=== PATIENT | male | born 1965 | race African-American/Black ===

== ENCOUNTER 2016-11-07 17:51 | Inpatient (IN) | payer OTHER ==
[~2016-11-07] VITALS: Ht 182.9 cm; Wt 73.3 kg
--- NOTE | ~2016-11-07 | EKG ---
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[facility] : 1965 Requested By: Varghese Trujillo Order Number: [id number] MD: Benny Heller Measurements Intervals [place] Rate: 108 P: 56 AR: 166 QRS: -43 QRSD: 96 T: 143 QT: 379 QTc: 508 Interpretive Statements Sinus tachycardia Left atrial enlargement LVH with secondary repolarization abnormality Prolonged QT interval Inferior infarct, old Compared to ECG 10/23/2016 21:25:11 No significant change was found Electronically Signed On 11-09-2016 8:38:30 ADVANCE AGENT by Benny Heller [email or web address] <ELECTRONICALLY SIGNED> By: Benny Heller MD, [facility] 11/09/16 0838 175 175 Benny Heller MD, [facility] /EPI
--- NOTE | ~2016-11-07 | HC ---
[facility] [place] [address] CONSULTATION Name: PATRICIA CARPIO Room #: 211-P [facility] IN M.R.#: [id number] Admission: 11/07/16 Attend Phys: Brian Woody Discharge: 11/10/16 Date of : 63 Report #: [id number] THIS REPORT FOR: //name// CC: MARY ANNE physician/PCP Brian Woody REASON FOR CONSULTATION: Stage 4 CKD. REASON FOR THE PRESENTATION: Chest pain. HISTORY OF PRESENT ILLNESS: The patient had been in the hospital 10/12/2016, 10/13/2016 and 10/23/2016 and was followed up, was seen by Dr. White, my partner in the group numerous times during his hospitalization. He has a very longstanding HIV, AIDS. He used to live in [place] and moved recently to [place]. On 10/13/2016, when he was evaluated by Dr. White, he reported that he has been taking numerous antiretroviral medications and developed significant cardiomyopathy with fluid retention. He was told that his kidney disease is related to HIV and that he had stage 4 kidney disease. No biopsy proven HIV related nephropathy. He presented initially to [facility] and refused to go back there. He was readmitted numerous times here with the same complaint. He reported that he has been having shortness of breath ever since the discharge. He also reported that he had been chest pain across the chest wall. This was related to his movement. No nausea or vomiting. He admitted to having a cardiac catheterizations back in [place] with nonrevealing findings; however, the reports are not available. He was also evaluated by Dr. Dimas for an ICD placement; however, this was postponed due to the patient's current immune suppressive status or immune compromised status. He is supposed to this. PAST MEDICAL HISTORY: 1. Cardiomyopathy. 2. Ejection fraction is 20%. 3. HIV. 4. Chronic obstructive pulmonary disease. 5. Chronic kidney disease, stage 4. 6. Hypertension. 7. Pancreatitis. 8. Status post laceration of the spleen with intestinal repair. 9. Genital herpes. 10. New skin lesions. 11. Chlamydia. 12. Syphilis. ALLERGIES: ADRIAN INHIBITOR . FAMILY HISTORY: No known chronic kidney disease in the family. [address] [address] CONSULTATION Name: PATRICIA CARPIO Room #: 211-P [facility] IN M.R.#: [id number] Admission: 11/07/16 Attend Phys: Brian Woody Discharge: 11/10/16 Date of : 63 Report #: [id number] SOCIAL HISTORY: No drug or alcohol abuse. REVIEW OF SYSTEMS: GENERAL: No fever or chills. CARDIOVASCULAR: Significant for chest pain and shortness of breath. PULMONARY: Significant for shortness of breath. No cough or hemoptysis. GASTROINTESTINAL: No nausea or vomiting. GENITOURINARY: No frequency, urgency. MEDICATIONS: 1. Bactrim. 2. Abacavir. 3. Lamivudine. 4. Hydralazine. 5. Carvedilol. 6. Losartan. 7. Aspirin. 8. Lasix. PHYSICAL EXAMINATION: GENERAL: He is alert, oriented, in no apparent distress. VITAL SIGNS: Blood pressure is 153/123. Temperature 36.6. HEAD AND NECK: No jugular venous distention, no bruit, no thyromegaly. CHEST: Decreased air entry bilaterally with very minimal bibasilar crackles. CARDIOVASCULAR: No rub detected. ABDOMEN: Soft, nontender with no hepatosplenomegaly. LOWER EXTREMITIES: Trace edema. ASSESSMENT, IMPRESSION, PLAN: 1. Terminal cardiomyopathy with ejection fractions of 20%. 2. Hypertension. 3. Chronic kidney disease stage 4. 4. Human immunodeficiency virus. 5. The patient seems to be stable from the renal perspective. His creatinine and other lab values were reviewed. He does have what seems to be advanced kidney disease, probably related to his human immunodeficiency virus. 6. We will place on Lasix. 7. Strict input and output. 8. Continue to address his blood pressure. 9. Continue to address his cardiomyopathy and currently, he is maintained on carvedilol, losartan, hydralazine, aspirin. 10. No emergent indication for dialysis at this point. 11. We will defer the management of his cardiac issues to the cardiac team. 12. Avoid nephrotoxins. 13. We will defer the management of his human immunodeficiency virus [address] [address] CONSULTATION Name: PATRICIA CARPIO Room #: 211-P [facility] IN M.R.#: [id number] Admission: 11/07/16 Attend Phys: Brian Woody Discharge: 11/10/16 Date of : 63 Report #: [id number] medications to the hospitalist and ID team. 14. Stable from our side. <ELECTRONICALLY SIGNED> By: Jarod Glover MD 11/19/16 0926 1040 1213 Jarod Glover MD /nt
--- NOTE | ~2016-11-07 | HC ---
[facility] [place] [address] CONSULTATION Name: PATRICIA CARPIO Room #: 211-P ADM IN M.R.#: [id number] Admission: 11/07/16 Attend Phys: Brian Woody Discharge: Date of : 63 Report #: [id number] THIS REPORT FOR: //name// CC: MARY ANNE physician/PCP Brian Woody DATE OF SERVICE: 11/08/2016 INDICATION: Chest pain and shortness of breath. HISTORY OF PRESENT ILLNESS: This is a 51-year-old gentleman presenting with exacerbation of chronic chest pains and increasing shortness of breath. He has a prior history of severe, nonischemic cardiomyopathy, HIV, COPD, chronic renal insufficiency, and hypertension. He has had several hospitalizations in the last month for congestive heart failure and chronic chest pain. He had troponin elevation in the indeterminate range. He reports having a prior catheterization in [place] within the past year, unremarkable. The patient was recently evaluated by Dr. Dimas as an outpatient for prophylactic ICD placement. Due to his immunocompromised state, this has been postponed and he is currently wearing a LifeVest. There is no history of fever or chills. He has chronic orthopnea. He describes the chest pain, across his chest. It seems to be exacerbated with movement of his arms and deep inspiration. PAST MEDICAL HISTORY: Severe nonischemic cardiomyopathy, recent echo shows EF in the 20% range. The patient reports having a cardiac catheterization within the past year in [place]. Currently wearing a LifeVest, ICD is postponed due to his immunocompromised state. HIV positive, COPD, chronic renal disease, hypertension, and pancreatitis. ALLERGIES: To ADRIAN INHIBITORS and AZITHROMYCIN. MEDICATIONS AT HOME: Include Bactrim, Epivir 150 mg daily, Tivicay 50 mg daily, DuoNebs, Combivent inhalers, hydralazine 25 mg 4 times a day, Coreg 25 mg b.i.d., losartan 100 mg daily, aspirin, Lasix 80 mg in the morning and 40 mg at night. SOCIAL HISTORY: Former tobacco smoker. FAMILY HISTORY: Negative for premature CAD. REVIEW OF SYSTEMS: A full 10-point review of systems performed. Only the pertinent positives and negatives are described in the HPI. PHYSICAL EXAMINATION: VITAL SIGNS: Blood pressure is 150/100. Heart rate is 100 beats per minute. GENERAL APPEARANCE: This is a well-developed, well-nourished male, in no [facility] [place] [address] [place] [address] CONSULTATION Name: PATRICIA CARPIO Room #: 211-P [facility] IN M.R.#: [id number] Admission: 11/07/16 Attend Phys: Brian Woody Discharge: Date of : 63 Report #: [id number] respiratory distress. HEAD AND EYES: Normocephalic. Sclerae are anicteric. ENT: Oral mucosa moist. NECK: Supple. LUNGS: Diminished breath sounds at the bases. CARDIAC: S1, S2 positive. ABDOMEN: Soft. EXTREMITIES: No major joint deformities. Positive for bilateral lower extremity edema, 1+. ECG reveals sinus tachycardia, nonspecific IVCD, LVH with repolarization abnormality. LABORATORY VALUES: Peak troponin is 0.1. White count is 3.6, hemoglobin is 10.9. Sodium is 141, potassium is 4.6, and creatinine is 3.0. ASSESSMENT: 1. Acute on chronic combined systolic and diastolic congestive heart failure. Continue with IV Lasix twice a day. 2. Chest pain, chronic. He has a troponin level in the indeterminate range. This has not changed from his previous hospitalizations. More likely related to a musculoskeletal/pleuritic etiology. Continue with medical therapy. 3. EP/LifeVest, has not had any recent discharges. We will have EP follow up during this admission. 4. Chronic obstructive pulmonary disease. 5. Human immunodeficiency virus. 6. Chronic renal insufficiency. Thank you for allowing me to participate in the care of your patient. <ELECTRONICALLY SIGNED> By: Seamus Reese MD 11/09/16 0838 0946 1012 Seamus Reese MD /nt
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
[2016-11-07 17:51] VITALS: BP 165/133
[~2016-11-07 17:51] MED LIST: ACYCLOVIR 400400 MG PO; AMBIEN 5 MG TABL5 M1 PO; AMLODIPINE BESYL5 M1 PO; ASPIR 8181 MG PO; BACTRIM DS TAB1 EACH PO; CARVEDILOL12.5 MG PO; CARVEDILOL25 MG PO; COLACE100 MG PO; COMBIVENT INH; COREG25 MG PO; COZAAR100 MG PO; DIPHENHIST50 MG PO; DUONEB 2.5-0.5 M3 ML INH; EPIVIR 150MG T150 M1 PO; HYDRALAZINE 2525 MG PO; IMDUR 30 MG TAB30 M1 PO; LASIX 20 MG TAB20 MG PO; LASIX 40 MG TAB40 M1 PO; MS CONTIN15 MG PO; NEBULIZER MISCELL; NORCO 10-325 T1 EACH PO; TIVICAY50 MG PO; TRIUMEQ TABLET1 EACH PO; ZIAGEN 300 MG300 MG PO
[2016-11-07 18:31] LABS: ABSOLUTE NEUTROPHILS 2.1 thou/uL (1.4-8.2); BASOPHILS 2.4 % (0.0-2.0); HEMATOCRIT 33.8 % (42.0-52.0); HEMOGLOBIN 10.9 gm/dL (14.0-18.0); LYMPHOCYTES 28.2 % (24.0-44.0); MCH 28.6 pg (26.0-34.0); MCHC 32.2 % (28.0-37.0); MCV 88.6 fL (80.0-100.0); MONOCYTES 7.4 % (1.0-8.0); PLATELET COUNT 167 thou/uL (150-400); RBC 3.81 mil/uL (4.50-6.00); RDW 19.4 % (10.5-14.5); WBC 3.6 thou/uL (4.0-11.0)
[2016-11-07 18:32] LABS: MANUAL DIFF NO
[2016-11-07 18:46] LABS: CALCIUM 8.2 mg/dL (8.5-10.1); POTASSIUM 4.4 mmol/L (3.5-5.1)
[2016-11-07 18:58] LABS: ALBUMIN 2.2 g/dL (3.4-5.0); CK-MB MASS 2.4 ng/mL (<0.5-3.6); MAGNESIUM 1.8 mg/dL (1.8-2.4); TOTAL BILIRUBIN 0.4 mg/dL (<0.1-1.0); TOTAL PROTEIN 6.8 g/dL (6.4-8.2); TROPONIN-I 0.1 ng/mL (<0.04-0.07)
[2016-11-07 19:29] LABS: URINE BILIRUBIN NEGATIVE (Negative); URINE BLOOD 1+ (Negative); URINE COLOR YELLOW; URINE GLUCOSE-RANDOM* NEGATIVE (Negative); URINE KETONES NEGATIVE (Negative); URINE LEUKOCYTES-REFLEX NEGATIVE (Negative); URINE PROTEIN (DIPSTICK) 3+ (Negative); URINE UROBILINOGEN 0.2 E.U./dl (0.2-1.0)
[2016-11-07 19:37] LABS: CASTS None Seen /LPF (None Seen); CRYSTALS None Seen /LPF (None Seen); SQUAMOUS None Seen /LPF (0-3); URINE RBC 0-2 Rare /HPF (0-2); URINE WBC-REFLEX 0-5 Rare /HPF (0-5)
[2016-11-07 20:15] VITALS: BP 159/123
[2016-11-07 20:45] VITALS: BP 168/133
[2016-11-07] MEDS ORDERED: LASIX 80 MG TAB80 MG PO (20:56)
[2016-11-07] MEDS ORDERED: LASIX 40 MG TAB40 M2 PO (20:56)
[2016-11-07] MEDS ORDERED: HYDRALAZINE 2525 MG PO (20:58)
[2016-11-07 23:25] VITALS: BP 173/136
[2016-11-07 23:52] LABS: APTT 26.3 Seconds (24.5-32.8); INR 1.1; PROTIME 11.7 Seconds (9.3-11.4)
[2016-11-08 03:12] LABS: CALCIUM 8.1 mg/dL (8.5-10.1); MAGNESIUM 1.8 mg/dL (1.8-2.4); POTASSIUM 4.6 mmol/L (3.5-5.1)
[2016-11-08 03:45] VITALS: BP 166/130
[2016-11-08 07:30] VITALS: BP 153/123
[2016-11-08 12:25] VITALS: BP 113/91
[2016-11-08 16:55] VITALS: BP 134/103
[2016-11-08 20:00] VITALS: BP 114/86
[2016-11-08 23:53] VITALS: BP 109/83
[2016-11-09 02:47] LABS: BASOPHILS 1.9 % (0.0-2.0); EOSINOPHILS 9.2 % (0.0-3.0); HEMATOCRIT 32.9 % (42.0-52.0); HEMOGLOBIN 10.6 gm/dL (14.0-18.0); LYMPHOCYTES 20.9 % (24.0-44.0); MCH 28.5 pg (26.0-34.0); MCHC 32.3 % (28.0-37.0); MCV 88.4 fL (80.0-100.0); MONOCYTES 10.1 % (1.0-8.0); PLATELET COUNT 151 thou/uL (150-400); POLYS 57.9 % (36.0-66.0); RBC 3.72 mil/uL (4.50-6.00); WBC 3.5 thou/uL (4.0-11.0)
[2016-11-09 03:00] LABS: MANUAL DIFF NO
[2016-11-09 03:04] LABS: CALCIUM 7.8 mg/dL (8.5-10.1); CREATININE 3.3 mg/dL (0.6-1.3); MAGNESIUM 1.7 mg/dL (1.8-2.4); PHOSPHORUS 4.6 mg/dL (2.5-4.9); POTASSIUM 4.7 mmol/L (3.5-5.1)
[2016-11-09 03:58] VITALS: BP 154/100
[2016-11-09 11:31] VITALS: BP 104/78
[2016-11-09 14:43] VITALS: BP 127/93
[2016-11-09 18:19] VITALS: BP 117/91
[2016-11-09 21:40] VITALS: BP 135/90
[2016-11-10 03:24] LABS: CALCIUM 8.6 mg/dL (8.5-10.1); CREATININE 3.3 mg/dL (0.6-1.3); MAGNESIUM 1.9 mg/dL (1.8-2.4); POTASSIUM 4.4 mmol/L (3.5-5.1)
[2016-11-10 04:08] VITALS: BP 144/99
[2016-11-10] MEDS ORDERED: NORCO 10-325 T1 EACH PO (08:33)
[2016-11-10] MEDS ORDERED: MS CONTIN15 MG PO (08:33)
[2016-11-10] MEDS ORDERED: LASIX 40 MG TAB40 M2 PO (08:33)
[2016-11-10 08:53] VITALS: BP 139/103
[2016-11-10 11:07] VITALS: BP 139/103
[2016-11-10 11:10] VITALS: BP 139/103
[2016-11-10] MEDS ORDERED: LASIX 80 MG TAB80 MG PO (12:26)
[2016-12-13] MEDS ORDERED: NORCO 10-325 T1 EACH PO (04:13)
[2016-12-13] MEDS ORDERED: COMBIVENT INH (05:30)
[2016-12-19] MEDS ORDERED: COREG25 MG PO (09:18)
[2016-12-19] MEDS ORDERED: COZAAR 50 MG TA50 M2 PO (09:29)
[2016-12-21] MEDS ORDERED: ZOFRAN ODT8 MG PO (18:18)
[2016-12-21] MEDS ORDERED: NORCO 5-325 TA1 EACH PO ×2 (18:18→20:48)
[2016-12-22] MEDS ORDERED: NORCO 5-325 TA1 EACH PO (13:42)
[2016-12-22] MEDS ORDERED: HOME MEDICATION PO (13:42)
== END 2016-11-10 12:55 | disposition home or self-care (01) | DRG 291 ==
LOC: ER 17:51 → 2N 19:48 → EROBS 19:48 → 2N 20:33
PROVIDERS: Emergency Medicine; Internal Medicine; Nurse Practitioner Acute Care
DX: I50.43 Acute on chronic combined systolic (congestive) and diastolic (congestive) heart failure (principal); E43 Unspecified severe protein-calorie malnutrition; B20 Human immunodeficiency virus [HIV] disease; I13.0 Hypertensive heart and chronic kidney disease with heart failure and stage 1 through stage 4 chronic kidney disease, or unspecified chronic kidney disease; N18.4 Chronic kidney disease, stage 4 (severe); K86.1 Other chronic pancreatitis; I42.9 Cardiomyopathy, unspecified; J96.10 Chronic respiratory failure, unspecified whether with hypoxia or hypercapnia; J44.9 Chronic obstructive pulmonary disease, unspecified; A74.9 Chlamydial infection, unspecified; G89.29 Other chronic pain; M54.9 Dorsalgia, unspecified; Z79.82 Long term (current) use of aspirin; Z79.899 Other long term (current) drug therapy; Z88.1 Allergy status to other antibiotic agents; Z88.8 Allergy status to other drugs, medicaments and biological substances; Z79.891 Long term (current) use of opiate analgesic; Z87.891 Personal history of nicotine dependence; Z86.19 Personal history of other infectious and parasitic diseases; Z82.49 Family history of ischemic heart disease and other diseases of the circulatory system; Z95.810 Presence of automatic (implantable) cardiac defibrillator; Z68.21 Body mass index [BMI] 21.0-21.9, adult
CPT/HCPCS: 10081

== ENCOUNTER 2016-11-18 10:22 | Emergency (ER) | payer OTHER ==
[~2016-11-18] VITALS: Ht 182.9 cm; Wt 77.1 kg
--- NOTE | ~2016-11-18 | EKG ---
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
[~2016-11-18 10:22] MED LIST changes: +LASIX 40 MG TAB40 M2 PO; +LASIX 80 MG TAB80 MG PO
[2016-11-18 10:35] LABS: ABSOLUTE NEUTROPHILS 2.5 thou/uL (1.4-8.2); BASOPHILS 1.8 % (0.0-2.0); HEMATOCRIT 34.9 % (42.0-52.0); LYMPHOCYTES 22.6 % (24.0-44.0); MCH 28.1 pg (26.0-34.0); MCHC 31.6 % (28.0-37.0); MONOCYTES 10.9 % (1.0-8.0); PLATELET COUNT 177 thou/uL (150-400); POLYS 60.7 % (36.0-66.0); RBC 3.92 mil/uL (4.50-6.00); RDW 19.3 % (10.5-14.5); WBC 4.1 thou/uL (4.0-11.0)
[2016-11-18 10:38] LABS: MANUAL DIFF NO
[2016-11-18 10:46] LABS: CALCIUM 8.7 mg/dL (8.5-10.1); CREATININE 2.7 mg/dL (0.6-1.3)
[2016-11-18 10:47] LABS: APTT 26.1 Seconds (24.5-32.8); INR 1.1
[2016-11-18 11:03] LABS: ALBUMIN 2.2 g/dL (3.4-5.0); CK-MB MASS 1.8 ng/mL (<0.5-3.6); TOTAL BILIRUBIN 0.3 mg/dL (<0.1-1.0); TROPONIN-I 0.06 ng/mL (<0.04-0.07)
[2016-11-18] MEDS ORDERED: NORCO 10-325 T1 EACH PO (14:14)
[2016-11-18] MEDS ORDERED: COMBIVENT RESPIM4 GM IH (14:14)
[2016-12-13] MEDS ORDERED: NORCO 10-325 T1 EACH PO (04:13)
[2016-12-13] MEDS ORDERED: COMBIVENT INH (05:30)
[2016-12-19] MEDS ORDERED: COREG25 MG PO (09:18)
[2016-12-19] MEDS ORDERED: COZAAR 50 MG TA50 M2 PO (09:29)
[2016-12-21] MEDS ORDERED: ZOFRAN ODT8 MG PO (18:18)
[2016-12-21] MEDS ORDERED: NORCO 5-325 TA1 EACH PO ×2 (18:18→20:48)
[2016-12-22] MEDS ORDERED: HOME MEDICATION PO (13:42)
[2016-12-22] MEDS ORDERED: NORCO 5-325 TA1 EACH PO (13:42)
== END 2016-11-18 14:40 | disposition home or self-care (01) ==
LOC: ER 10:22
PROVIDERS: Emergency Medicine
DX: I13.0 Hypertensive heart and chronic kidney disease with heart failure and stage 1 through stage 4 chronic kidney disease, or unspecified chronic kidney disease (principal); N18.4 Chronic kidney disease, stage 4 (severe); I50.9 Heart failure, unspecified; B20 Human immunodeficiency virus [HIV] disease; I42.9 Cardiomyopathy, unspecified; J44.9 Chronic obstructive pulmonary disease, unspecified; R10.9 Unspecified abdominal pain; G89.29 Other chronic pain; R60.9 Edema, unspecified; Z88.1 Allergy status to other antibiotic agents; Z88.8 Allergy status to other drugs, medicaments and biological substances; Z87.891 Personal history of nicotine dependence

== ENCOUNTER 2016-11-24 20:11 | Inpatient (IN) | payer OTHER ==
[~2016-11-24] VITALS: Ht 182.9 cm; Wt 76.1 kg
--- NOTE | ~2016-11-24 | EKG ---
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
--- NOTE | ~2016-11-24 | D ---
[facility] [place] [address] DISCHARGE SUMMARY Name: PATRICIA CARPIO Room #: 209-P [facility] IN M.R.#: [id number] Admission: 11/24/16 Attend Phys: Forest Stuart MD Discharge: 11/25/16 Date of : 63 Report #: [id number] THIS REPORT FOR: //name// CC: Luke Stuart DATE OF SERVICE: 11/25/2016 The patient left against medical advice. Please see H and P for further details. Briefly, this patient is a 51-year-old male. He was admitted because of continued chest pain, abdominal pain, back spasm and he had a known history of nonischemic cardiomyopathy and supposed to be wearing a LifeVest, EF 20-25% and grade 4 diastolic dysfunction, chronic back pain. He basically had mild elevated troponin, hypertension, chronic systolic and diastolic heart failure, chronic renal disease stage 3, history of HIV and chronic respiratory failure and COPD. He was aslo noncompliant with the treatment and see all the medicines ordered in the chart before even get to the floor, Patient left the hospital againsy medical advice beofre i even see him. patient was not seen by me. the patient. He basically refused to comply with treatment and he left against medical advice. Please see notes in the chart for further details. <ELECTRONICALLY SIGNED> By: Forest Stuart MD 01/17/17 1500 1428 1610 Forest Stuart MD /sina
[~2016-11-24 20:11] MED LIST changes: +COMBIVENT RESPIM4 GM IH
[2016-11-24 20:24] VITALS: BP 149/114
[2016-11-24 20:56] LABS: ABSOLUTE NEUTROPHILS 2.3 thou/uL (1.4-8.2); BASOPHILS 1.8 % (0.0-2.0); EOSINOPHILS 4.1 % (0.0-3.0); HEMATOCRIT 34.2 % (42.0-52.0); LYMPHOCYTES 26.4 % (24.0-44.0); MANUAL DIFF NO; MCH 28.3 pg (26.0-34.0); MCV 88.2 fL (80.0-100.0); MONOCYTES 11.1 % (1.0-8.0); PLATELET COUNT 170 thou/uL (150-400); POLYS 56.6 % (36.0-66.0); RBC 3.88 mil/uL (4.50-6.00); RDW 18.3 % (10.5-14.5); WBC 4.1 thou/uL (4.0-11.0)
[2016-11-24 21:02] LABS: ANION GAP 8 mmol/L (7-16); BUN 30 mg/dL (7-18); CALCIUM 8.4 mg/dL (8.5-10.1); CHLORIDE 104 mmol/L (98-107); CO2 28 mmol/L (21-32); CREATININE 2.8 mg/dL (0.6-1.3); GLUCOSE 112 mg/dL (70-99); POTASSIUM 4.2 mmol/L (3.5-5.1); SODIUM 140 mmol/L (136-145)
[2016-11-24 21:15] LABS: ALKALINE PHOSPHATASE 145 U/L (46-116); DIRECT BILIRUBIN < 0.1 mg/dL (<0.1-0.3); NT-PRO BRAIN NAT PEPTIDE 12151 pg/mL (<300); SGOT 15 U/L (15-37); SGPT 13 U/L (30-65); TOTAL BILIRUBIN 0.4 mg/dL (<0.1-1.0); TOTAL PROTEIN 6.4 g/dL (6.4-8.2); TROPONIN-I 0.09 ng/mL (<0.04-0.07)
[2016-11-24 22:11] LABS: CK-MB MASS 1.5 ng/mL (<0.5-3.6)
[2016-11-24 22:39] LABS: URINE BILIRUBIN NEGATIVE (Negative); URINE BLOOD 1+ (Negative); URINE COLOR YELLOW; URINE GLUCOSE-RANDOM* NEGATIVE (Negative); URINE KETONES NEGATIVE (Negative); URINE LEUKOCYTES-REFLEX NEGATIVE (Negative); URINE PROTEIN (DIPSTICK) 3+ (Negative); URINE UROBILINOGEN 0.2 E.U./dl (0.2-1.0)
[2016-11-24 22:53] LABS: CASTS None Seen /LPF (None Seen); CRYSTALS None Seen /LPF (None Seen); SQUAMOUS None Seen /LPF (0-3); URINE RBC 0-2 Rare /HPF (0-2); URINE WBC-REFLEX 0-5 Rare /HPF (0-5)
[2016-11-24 23:32] VITALS: BP 168/132
[2016-11-25 00:10] VITALS: BP 162/126
[2016-11-25 06:10] VITALS: BP 146/106
[2016-12-13] MEDS ORDERED: NORCO 10-325 T1 EACH PO (04:13)
[2016-12-13] MEDS ORDERED: COMBIVENT INH (05:30)
[2016-12-19] MEDS ORDERED: COREG25 MG PO (09:18)
[2016-12-19] MEDS ORDERED: COZAAR 50 MG TA50 M2 PO (09:29)
[2016-12-21] MEDS ORDERED: ZOFRAN ODT8 MG PO (18:18)
[2016-12-21] MEDS ORDERED: NORCO 5-325 TA1 EACH PO ×2 (18:18→20:48)
[2016-12-22] MEDS ORDERED: HOME MEDICATION PO (13:42)
[2016-12-22] MEDS ORDERED: NORCO 5-325 TA1 EACH PO (13:42)
== END 2016-11-25 07:45 | disposition left against medical advice (07) | DRG 291 ==
LOC: ER 20:11 → EROBS 23:00 → 2N 23:00
PROVIDERS: Emergency Medicine; Nurse Practitioner
DX: I13.0 Hypertensive heart and chronic kidney disease with heart failure and stage 1 through stage 4 chronic kidney disease, or unspecified chronic kidney disease (principal); B20 Human immunodeficiency virus [HIV] disease; I50.42 Chronic combined systolic (congestive) and diastolic (congestive) heart failure; J96.10 Chronic respiratory failure, unspecified whether with hypoxia or hypercapnia; N18.4 Chronic kidney disease, stage 4 (severe); I42.9 Cardiomyopathy, unspecified; R25.2 Cramp and spasm; G89.29 Other chronic pain; M54.9 Dorsalgia, unspecified; J44.9 Chronic obstructive pulmonary disease, unspecified; Z79.891 Long term (current) use of opiate analgesic; Z90.49 Acquired absence of other specified parts of digestive tract; Z88.1 Allergy status to other antibiotic agents; Z88.8 Allergy status to other drugs, medicaments and biological substances; Z79.899 Other long term (current) drug therapy; Z82.49 Family history of ischemic heart disease and other diseases of the circulatory system
CPT/HCPCS: 10081

== ENCOUNTER 2016-11-28 04:31 | Emergency (ER) | payer OTHER ==
[~2016-11-28] VITALS: Ht 182.9 cm; Wt 79.4 kg
--- NOTE | ~2016-11-28 | EKG ---
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1965 Requested By: Varghese Trujillo Order Number: [id number] MD: Dheeraj Dimas Measurements Intervals [place] Rate: 108 P: 49 CA: 190 QRS: -43 QRSD: 92 T: 100 QT: 375 QTc: 503 Interpretive Statements Sinus tachycardia Probable left atrial enlargement RSR' in V1 or V2, probably normal variant Inferior infarct, old Lateral leads are also involved Electronically Signed On 11-28-2016 16:07:33 ELECTRIC FREIGHT CAR OPERATOR by Dheeraj Dimas [email or web address] <ELECTRONICALLY SIGNED> By: Dheeraj Dimas MD 11/28/16 1607 0457 0457 Dheeraj Dimas MD /MEE
[2016-11-28 05:35] LABS: TROPONIN-I 0.11 ng/mL (<0.04-0.07)
[2016-11-28] MEDS ORDERED: ZOFRAN ODT8 MG PO (05:53)
[2016-11-28] MEDS ORDERED: NITROGLYCERIN0.4 MG SUBLING (05:53)
[2016-11-28] MEDS ORDERED: DUONEB 2.5-0.5 M3 ML INH (06:03)
[2016-11-28] MEDS ORDERED: COMBIVENT INH (06:03)
[2016-12-13] MEDS ORDERED: NORCO 10-325 T1 EACH PO (04:13)
[2016-12-13] MEDS ORDERED: COMBIVENT INH (05:30)
[2016-12-19] MEDS ORDERED: COREG25 MG PO (09:18)
[2016-12-19] MEDS ORDERED: COZAAR 50 MG TA50 M2 PO (09:29)
[2016-12-21] MEDS ORDERED: ZOFRAN ODT8 MG PO (18:18)
[2016-12-21] MEDS ORDERED: NORCO 5-325 TA1 EACH PO ×2 (18:18→20:48)
[2016-12-22] MEDS ORDERED: HOME MEDICATION PO (13:42)
[2016-12-22] MEDS ORDERED: NORCO 5-325 TA1 EACH PO (13:42)
== END 2016-11-28 06:48 | disposition home or self-care (01) ==
LOC: ER 04:31
PROVIDERS: Emergency Medicine
DX: R06.00 Dyspnea, unspecified (principal); I13.0 Hypertensive heart and chronic kidney disease with heart failure and stage 1 through stage 4 chronic kidney disease, or unspecified chronic kidney disease; N18.4 Chronic kidney disease, stage 4 (severe); I50.9 Heart failure, unspecified; J44.9 Chronic obstructive pulmonary disease, unspecified; Z21 Asymptomatic human immunodeficiency virus [HIV] infection status; G89.29 Other chronic pain; Z88.1 Allergy status to other antibiotic agents; Z88.8 Allergy status to other drugs, medicaments and biological substances; F17.210 Nicotine dependence, cigarettes, uncomplicated

== ENCOUNTER 2017-02-05 18:19 | Emergency (ER) | payer OTHER ==
[~2017-02-05] VITALS: Ht 182.9 cm; Wt 81.7 kg
--- NOTE | ~2017-02-05 | EKG ---
[place] [address] [facility] [place] [address] ELECTROCARDIOGRAM REPORT Name: PATRICIA CARPIO Room #: DEP GILMAR Bean#: [id number] Admission: 02/05/17 Attend Phys: Discharge: 02/05/17 Date of : 63 Report #: [id number] THIS REPORT FOR: //name// 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
[~2017-02-05 18:19] MED LIST changes: +COZAAR 50 MG TA50 M2 PO; +HOME MEDICATION PO; +NITROGLYCERIN0.4 MG SUBLING; +NORCO 5-325 TA1 EACH PO; +ZOFRAN ODT8 MG PO
[2017-02-05] MEDS ORDERED: NORCO 10-325 T1 EACH PO (18:55)
[2017-02-05] MEDS ORDERED: IMDUR 30 MG TAB30 M1 PO (18:57)
[2017-02-05] MEDS ORDERED: BUMETANIDE2 M1 PO (18:57)
[2017-02-05] MEDS ORDERED: NORVIR100 M1 PO (18:57)
[2017-02-05] MEDS ORDERED: PREZISTA800 MG PO (18:57)
[2017-02-05 18:59] LABS: ABSOLUTE NEUTROPHILS 2.6 thou/uL (1.4-8.2); BASOPHILS 1.2 % (0.0-2.0); EOSINOPHILS 1.6 % (0.0-3.0); HEMATOCRIT 30.5 % (42.0-52.0); HEMOGLOBIN 9.6 gm/dL (14.0-18.0); LYMPHOCYTES 28.2 % (24.0-44.0); MCHC 31.5 g/dL (28.0-37.0); MCV 85.6 fL (80.0-100.0); MONOCYTES 8.4 % (1.0-8.0); PLATELET COUNT 160 thou/uL (150-400); POLYS 60.6 % (36.0-66.0); RBC 3.56 mil/uL (4.50-6.00); RDW 18.3 % (10.5-14.5); WBC 4.3 thou/uL (4.0-11.0)
[2017-02-05 19:03] LABS: ANION GAP 8 mmol/L (7-16); BUN 24 mg/dL (7-18); CALCIUM 8.2 mg/dL (8.5-10.1); CHLORIDE 107 mmol/L (98-107); CO2 23 mmol/L (21-32); CREATININE 2.6 mg/dL (0.6-1.3); GLUCOSE 107 mg/dL (70-99); POTASSIUM 3.6 mmol/L (3.5-5.1); SODIUM 138 mmol/L (136-145)
[2017-02-05 19:06] LABS: MANUAL DIFF NO
[2017-02-05 19:14] LABS: ALKALINE PHOSPHATASE 97 U/L (46-116); DIRECT BILIRUBIN < 0.1 mg/dL (<0.1-0.3); NT-PRO BRAIN NAT PEPTIDE 13400 pg/mL (<300); SGOT 15 U/L (15-37); SGPT 9 U/L (30-65); TOTAL BILIRUBIN 0.2 mg/dL (<0.1-1.0); TOTAL PROTEIN 6.9 g/dL (6.4-8.2); TROPONIN-I 0.05 ng/mL (<0.04-0.07)
== END 2017-02-05 22:33 | disposition short-term general hospital (02) ==
LOC: ER 18:19
PROVIDERS: Emergency Medicine
DX: K85.90 Acute pancreatitis without necrosis or infection, unspecified (principal); I13.0 Hypertensive heart and chronic kidney disease with heart failure and stage 1 through stage 4 chronic kidney disease, or unspecified chronic kidney disease; N18.4 Chronic kidney disease, stage 4 (severe); I50.32 Chronic diastolic (congestive) heart failure; D64.9 Anemia, unspecified; J44.9 Chronic obstructive pulmonary disease, unspecified

== ENCOUNTER 2017-02-11 23:18 | Observation (INO) | payer OTHER ==
[~2017-02-11] VITALS: Ht 182.9 cm; Wt 80.6 kg
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
--- NOTE | ~2017-02-11 | HC ---
[facility] [address] [place] [address] CONSULTATION Name: PATRICIA CARPIO Room #: 201-P [facility]ICA Bean#: [id number] Admission: 02/12/17 Attend Phys: Brian Woody Discharge: 02/12/17 Date of : 63 Report #: [id number] THIS REPORT FOR: //name// CC: FAM unknown Brian Woody DATE OF SERVICE: 02/12/2017 REASON FOR CONSULTATION: Shortness of breath. HISTORY OF PRESENT ILLNESS: The patient is a 51-year-old gentleman who has been seen by Dr. Dimas and Dr. Reese. He has a history of a severe nonischemic cardiomyopathy, advanced chronic kidney disease, hypertension, HIV and COPD. Recently underwent prophylactic subcutaneous ICD placement by Dr. Wilson at . He now presents with several days of increasing shortness of breath with lower extremity edema and abdominal bleeding. He denies chest heaviness or pressure. There have been no symptoms to suggest ICD discharge. He denies fevers, chills or night sweats. ALLERGIES: Include ADRIAN INHIBITORS and AZITHROMYCIN. MEDICATIONS: Include Atrovent, Ziagen 300 mg twice daily, Atavir 150 mg daily, carvedilol 25 mg twice daily, losartan 50 mg daily, Imdur 30 mg daily, hydralazine 25 mg 4 times a day, and Bumex is 1-1/2 tablet twice daily. PAST MEDICAL HISTORY: His past history and medical records have been reviewed and include a history of chronic combined heart failure, HIV-AIDS, recent subcutaneous ICD placement, COPD and hypertension. SOCIAL HISTORY: He is a former smoker. FAMILY HISTORY: Unremarkable for premature coronary disease. REVIEW OF SYSTEMS: All systems negative except as that noted above. PHYSICAL EXAMINATION: GENERAL: A pleasant gentleman in no distress. VITAL SIGNS: Blood pressure is 130/90, heart rate is 70 and regular. He is afebrile, 6 feet tall and 177 pounds. HEENT: There are neither xanthelasma, subcutaneous xanthomata, oral mucosal or digital cyanosis or kyphoscoliosis present. CHEST: Reveals diminished breath sounds at both bases. CARDIOVASCULAR: Regular rate and rhythm with normal S1 and S2, S3 gallop is present. Jugular venous pressure is elevated. ABDOMEN: Soft and nontender. The abdomen reveals ascites. EXTREMITIES: With trace edema. Radial pulses are 2+. [facility] [address] [place] [address] CONSULTATION Name: PATRICIA CARPIO Room #: 201-P BERONICA Bean#: [id number] Admission: 02/12/17 Attend Phys: Brian Woody Discharge: 02/12/17 Date of : 63 Report #: [id number] NEUROLOGIC: He is alert with a nonfocal exam. LABORATORY DATA: Sodium is 137, potassium 4.1 and creatinine 3.1, which is around where his baseline is. White count 3.4, hemoglobin 9.3, hematocrit 28, platelet count 111. Chest x-ray demonstrates cardiomegaly and right basilar atelectasis. IMPRESSION: 1. Iftrv-hd-cjpcrjg systolic heart failure. 2. Severe cardiomyopathy. 3. Human immunodeficiency virus - acquired immunodeficiency syndrome. 4. Chronic obstructive pulmonary disease. 5. Hypertension. 6. History of paroxysmal ventricular tachycardia with recent subcutaneous implantable cardioverter defibrillator replacement. RECOMMENDATIONS: 1. IV Lasix. 2. Dietary salt restriction. 3. Despite an aggressive pharmacologic regimen, his recurrent and multiple hospitalizations over the past year for congestive heart failure places him at very high overall mortality. Thank you for asking me to participate in his care. <ELECTRONICALLY SIGNED> By: Benny Heller MD, FACC 02/13/17 1210 0959 1732 Benny Heller MD, FACC /nt
[~2017-02-11 23:18] MED LIST changes: +BUMETANIDE2 M1 PO; +NORVIR100 M1 PO; +PREZISTA800 MG PO
[2017-02-11 23:20] VITALS: BP 162/124
[2017-02-12 00:02] LABS: ABSOLUTE NEUTROPHILS 2.1 thou/uL (1.4-8.2); BASOPHILS 1.5 % (0.0-2.0); EOSINOPHILS 1.9 % (0.0-3.0); HEMATOCRIT 28.7 % (42.0-52.0); HEMOGLOBIN 9.3 gm/dL (14.0-18.0); LYMPHOCYTES 26.9 % (24.0-44.0); MANUAL DIFF NO; MCH 27.7 pg (26.0-34.0); MCHC 32.3 g/dL (28.0-37.0); MCV 85.8 fL (80.0-100.0); MONOCYTES 7.7 % (1.0-8.0); PLATELET COUNT 111 thou/uL (150-400); RBC 3.34 mil/uL (4.50-6.00); RDW 18.1 % (10.5-14.5); WBC 3.4 thou/uL (4.0-11.0)
[2017-02-12 00:38] LABS: GLUCOSE 122 mg/dL (74-106)
[2017-02-12 02:13] LABS: SGOT 20 U/L (15-37)
[2017-02-12 02:19] LABS: ALKALINE PHOSPHATASE 150 U/L (46-116); ANION GAP 12 mmol/L (7-16); BUN 35 mg/dL (7-18); CALCIUM 8.1 mg/dL (8.5-10.1); CHLORIDE 103 mmol/L (98-107); CO2 22 mmol/L (21-32); CREATININE 3.1 mg/dL (0.7-1.3); DIRECT BILIRUBIN < 0.1 mg/dL (<0.1-0.3); NT-PRO BRAIN NAT PEPTIDE 26697 pg/mL (<300); POTASSIUM 4.1 mmol/L (3.5-5.1); SGPT 12 U/L (30-65); SODIUM 137 mmol/L (136-145); TOTAL BILIRUBIN 0.3 mg/dL (<0.1-1.0); TOTAL PROTEIN 7.2 g/dL (6.4-8.2); TROPONIN-I 0.06 ng/mL (<0.04-0.07)
[2017-02-12 04:50] VITALS: BP 157/119
[2017-02-12 05:26] VITALS: BP 173/135
[2017-02-12 08:00] VITALS: BP 130/98
[2017-02-12 13:22] VITALS: BP 131/99
[2017-02-12 16:00] VITALS: BP 130/97
== END 2017-02-12 21:47 | disposition left against medical advice (07) ==
LOC: ER 23:18 → EROBS 02-12 04:02 → ER 02-12 04:02 → 2N 02-12 04:51
PROVIDERS: Emergency Medicine
DX: I82.409 Acute embolism and thrombosis of unspecified deep veins of unspecified lower extremity (principal); I50.43 Acute on chronic combined systolic (congestive) and diastolic (congestive) heart failure; I13.0 Hypertensive heart and chronic kidney disease with heart failure and stage 1 through stage 4 chronic kidney disease, or unspecified chronic kidney disease; N18.4 Chronic kidney disease, stage 4 (severe); J96.10 Chronic respiratory failure, unspecified whether with hypoxia or hypercapnia; J44.9 Chronic obstructive pulmonary disease, unspecified; K85.90 Acute pancreatitis without necrosis or infection, unspecified; B20 Human immunodeficiency virus [HIV] disease; Z87.891 Personal history of nicotine dependence; F10.21 Alcohol dependence, in remission

== ENCOUNTER 2017-04-06 19:46 | Inpatient (IN) | payer OTHER ==
[~2017-04-06] VITALS: Ht 182.9 cm; Wt 77.1 kg
--- NOTE | ~2017-04-06 | 2DMMODE ---
[facility] [address] [place] [address] 2 D/M-MODE ECHOCARDIOGRAM Name: PATRICIA CARPIO Room #: 206-P ADM IN M.R.#: [id number] Admission: 04/06/17 Attend Phys: Billy Rendon Discharge: Date of : 63 Date of Service: 04/08/17 1023 Report #: [id number] THIS REPORT FOR: //name// APPROVED REPORT Study performed: 04/07/2017 13:42:17 EXAM: Comprehensive 2D, Doppler, and color-flow Echocardiogram Patient Location: Bedside Room #: 206 Other Information Study Quality: Good Indications Congestive Heart Failure COPD Hypertension/HDD 2D Dimensions RVDd: 49.82 mm LVEF(%): 17.03 (>50%) IVSd: 10.62 (7-11mm) LVOT Diam: 21.98 (18-24mm) LVDd: 60.26 mm PWd: 11.91 (7-11mm) Ascending Ao: 31.52 (22-36mm) LVDs: 55.55 (25-40mm) Aortic Root: 32.81 mm IVC: 24.00 mm Singh's LVEF: 17.03 % Volumes Left Atrial Volume (Systole) Single Plane 4CH: 89.65 mL Single Plane 2CH: 119.69 mL LA ESV Index: 57.00 mL/m2 Aortic Valve AoV Peak Micheal.: 0.82 m/s AO Peak Gr.: 2.72 mmHg LVOT Max P.55 mmHg LVOT Max V: 0.37 m/s LIGIA Vmax: 1.70 cm2 Mitral Valve E/A Ratio: 2.3 MV Decel. Time: 109.47 ms MV E Max Micheal.: 0.84 m/s MV A Micheal.: 0.36 m/s [facility] [place] [place] [address] 2 D/M-MODE ECHOCARDIOGRAM Name: SHIRINPATRICIA Room #: 206-P ADM IN M.R.#: [id number] Admission: 04/06/17 Attend Phys: Billy Rendon Discharge: Date of : 63 Date of Service: 04/08/17 1023 Report #: [id number] MV PHT: 31.75 ms IVRT: 89.97 ms Pulmonary Valve PV Peak Micheal.: 0.70 m/s PV Peak Gr.: 1.98 mmHg Pulmonary Vein P Vein S: 0.40 m/s P Vein A: 0.09 m/s P Vein D: 0.22 m/s P Vein S/D Ratio: 1.82 Tricuspid Valve TR Peak Micheal.: 3.59 m/s RAP Estimate: 15.00 mmHg TR Peak Gr.: 51.61 mmHg Left Ventricle The left ventricle is normal size. There is normal left ventricular wall thickness. Left ventricular systolic function is severely decreased. LVEF is 20%. Grade IV - fixed restrictive diastolic dysfunction. Right Ventricle Right ventricle is dilated. Right ventricular systolic function is reduced. Atria Left atrium is dilated. Right atrium is dilated. Aortic Valve The aortic valve is normal in structure. Trace aortic regurgitation. There is no aortic valvular stenosis. Mitral Valve The mitral valve is normal in structure. Moderate mitral regurgitation. No evidence of mitral valve stenosis. Tricuspid Valve The tricuspid valve is normal in structure. Moderate tricuspid regurgitation. Pulmonic Valve The pulmonary valve is normal in structure. Mild pulmonic regurgitation. Great Vessels The aortic root is normal in size. The ascending aorta is normal in [facility] [address] [place] [address] 2 D/M-MODE ECHOCARDIOGRAM Name: PATRICIA CARPIO Room #: 206-P ADM IN M.R.#: [id number] Admission: 04/06/17 Attend Phys: Billy Rendon Discharge: Date of : 63 Date of Service: 04/08/17 1023 Report #: [id number] size. IVC is dilated and collapses <50% with inspiration. Pericardium There is no pericardial effusion. There is no pleural effusion. <Conclusion> The left ventricle is normal size. Left ventricular systolic function is severely decreased. LVEF is 20%. Right ventricle is dilated. Left atrium is dilated. Right atrium is dilated. The aortic valve is normal in structure. Trace aortic regurgitation. The mitral valve is normal in structure. Moderate mitral regurgitation. The tricuspid valve is normal in structure. Moderate tricuspid regurgitation. The pulmonary valve is normal in structure. Mild pulmonic regurgitation. IVC is dilated and collapses <50% with inspiration. <ELECTRONICALLY SIGNED> By: Jakub Little MD 04/08/17 1023 1023 1023 Jakub Little MD /INF
--- NOTE | ~2017-04-06 | EKG ---
[address] [place] [address] ELECTROCARDIOGRAM REPORT Name: PATRICIA CARPIO Room #: 206-P ADM IN M.R.#: [id number] Admission: 04/06/17 Attend Phys: Joe Avila MD Discharge: Date of : 63 Report #: [id number] THIS REPORT FOR: //name// [facility] ED Test Date: 2017-04-06 Test Time: 20:13:11 Pat Name: PATRICIA CARPIO Department: Room: 206 Gender: M Clean Room Technician: [id number] : 1965 Requested By: Lisa Waddell Order Number: [id number] MD: Benny Heller Measurements Intervals [place] Rate: 108 P: 50 ME: 181 QRS: -40 QRSD: 92 T: 120 QT: 359 QTc: 481 Interpretive Statements Sinus tachycardia Left atrial enlargement ST and T wave abnormality, consider lateral ischemia Inferior infarct, old Compared to ECG 02/05/2017 18:33:23 no significant change was found Electronically Signed On 04-07-2017 7:25:33 CDT by Benny Heller [email or web address] <ELECTRONICALLY SIGNED> By: Benny Heller MD, [facility] 04/07/17 0725 12 12 Benny Heller MD, [facility] /EPI
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
[2017-04-06 19:48] VITALS: BP 159/118
[2017-04-06 21:14] LABS: ANION GAP 9 mmol/L (7-16); BUN 23 mg/dL (7-18); CALCIUM 8.5 mg/dL (8.5-10.1); CHLORIDE 104 mmol/L (98-107); CO2 24 mmol/L (21-32); CREATININE 2.3 mg/dL (0.7-1.3); GLUCOSE 106 mg/dL (74-106); POTASSIUM 4.3 mmol/L (3.5-5.1); SODIUM 137 mmol/L (136-145)
[2017-04-06 21:19] LABS: NT-PRO BRAIN NAT PEPTIDE 9790 pg/mL (<300); TROPONIN-I < 0.04 ng/mL (<0.04-0.07)
[2017-04-06 21:34] LABS: ALBUMIN 2.4 g/dL (3.4-5.0); ALKALINE PHOSPHATASE 124 U/L (46-116); DIRECT BILIRUBIN < 0.1 mg/dL (<0.1-0.3); SGOT 19 U/L (15-37); SGPT 10 U/L (30-65); TOTAL BILIRUBIN 0.3 mg/dL (<0.1-1.0); TOTAL PROTEIN 7.4 g/dL (6.4-8.2)
[2017-04-06 21:44] LABS: ABSOLUTE NEUTROPHILS 1.9 thou/uL (1.4-8.2); BASOPHILS 1.4 % (0.0-2.0); EOSINOPHILS 3.4 % (0.0-3.0); HEMATOCRIT 28.4 % (42.0-52.0); LYMPHOCYTES 39.9 % (24.0-44.0); MANUAL DIFF NO; MCHC 31.7 g/dL (28.0-37.0); MCV 85.1 fL (80.0-100.0); MONOCYTES 7.9 % (1.0-8.0); PLATELET COUNT 163 thou/uL (150-400); POLYS 47.4 % (36.0-66.0); RBC 3.34 mil/uL (4.50-6.00); RDW 20.5 % (10.5-14.5); WBC 3.9 thou/uL (4.0-11.0)
[2017-04-06 22:14] VITALS: BP 153/118
[2017-04-06 22:33] VITALS: BP 164/124
[2017-04-06] MEDS ORDERED: COREG6.25 MG PO (22:40)
[2017-04-07 03:41] VITALS: BP 153/118
[2017-04-07 08:37] VITALS: BP 156/121
[2017-04-07 11:39] VITALS: BP 131/98
[2017-04-07 20:10] VITALS: BP 135/98
[2017-04-08 06:10] VITALS: BP 144/114
[2017-04-08 06:24] LABS: ABSOLUTE NEUTROPHILS 1.9 thou/uL (1.4-8.2); BASOPHILS 1.4 % (0.0-2.0); EOSINOPHILS 8.5 % (0.0-3.0); HEMATOCRIT 28.9 % (42.0-52.0); LYMPHOCYTES 33.2 % (24.0-44.0); MCH 27.1 pg (26.0-34.0); MCHC 31.3 g/dL (28.0-37.0); MCV 86.7 fL (80.0-100.0); MONOCYTES 9.1 % (1.0-8.0); PLATELET COUNT 183 thou/uL (150-400); POLYS 47.8 % (36.0-66.0); RBC 3.33 mil/uL (4.50-6.00); RDW 20.5 % (10.5-14.5); WBC 3.9 thou/uL (4.0-11.0)
[2017-04-08 06:25] LABS: MANUAL DIFF NO
[2017-04-08 06:33] LABS: ALBUMIN 2.6 g/dL (3.4-5.0); CALCIUM 8.8 mg/dL (8.5-10.1); MAGNESIUM 1.9 mg/dL (1.8-2.4); POTASSIUM 4.7 mmol/L (3.5-5.1); TOTAL BILIRUBIN 0.3 mg/dL (<0.1-1.0); TOTAL PROTEIN 7.9 g/dL (6.4-8.2)
[2017-04-08] MEDS ORDERED: DUONEB 2.5-0.5 M3 ML INH (08:57)
[2017-04-08] MEDS ORDERED: NORCO 10-325 T1 EACH PO (08:57)
[2017-04-08] MEDS ORDERED: CARVEDILOL12.5 MG PO (10:47)
[2017-04-08 11:04] VITALS: BP 144/114
== END 2017-04-08 11:36 | disposition home or self-care (01) | DRG 438 ==
LOC: ER 19:46 → EROBS 22:10 → 2N 22:10
PROVIDERS: Emergency Medicine; Internal Medicine
DX: K85.90 Acute pancreatitis without necrosis or infection, unspecified (principal); I50.43 Acute on chronic combined systolic (congestive) and diastolic (congestive) heart failure; B20 Human immunodeficiency virus [HIV] disease; I13.0 Hypertensive heart and chronic kidney disease with heart failure and stage 1 through stage 4 chronic kidney disease, or unspecified chronic kidney disease; N18.4 Chronic kidney disease, stage 4 (severe); N17.9 Acute kidney failure, unspecified; I42.9 Cardiomyopathy, unspecified; K86.1 Other chronic pancreatitis; R07.9 Chest pain, unspecified; J43.9 Emphysema, unspecified; G89.29 Other chronic pain; M54.9 Dorsalgia, unspecified; Z88.1 Allergy status to other antibiotic agents; Z86.74 Personal history of sudden cardiac arrest; Z82.49 Family history of ischemic heart disease and other diseases of the circulatory system; Z95.810 Presence of automatic (implantable) cardiac defibrillator; Z88.8 Allergy status to other drugs, medicaments and biological substances; Z79.899 Other long term (current) drug therapy; Z79.82 Long term (current) use of aspirin; Z87.891 Personal history of nicotine dependence; Z99.81 Dependence on supplemental oxygen
CPT/HCPCS: 10081

== ENCOUNTER 2017-04-12 18:35 | Inpatient (IN) | payer OTHER ==
[~2017-04-12] VITALS: Ht 182.9 cm; Wt 76.8 kg
--- NOTE | ~2017-04-12 | P ---
[facility] [place] [address] PROCEDURE REPORT Name: PATRICIA CARPIO Room #: 448-P [facility] IN M.R.#: [id number] Admission: 04/12/17 Attend Phys: Ford Guaman MD Discharge: Date of : 63 Report #: [id number] THIS REPORT FOR: //name// CC: FAM unknown Ford Guaman MD ESOPHAGOGASTRODUODENOSCOPY WITH BIOPSIES DATE OF PROCEDURE: 04/14/2017. PATIENT OF: Ford Guaman M.D. INDICATION FOR PROCEDURE: Nausea and epigastric tenderness of undetermined etiology. The patient has also had elevated lipase and pancreatitis episodes, it is thought that these may be related to some of his medications that he takes for the human immunodeficiency virus infection. However, other entities should be excluded, therefore esophagogastroduodenoscopy is being performed to evaluate for possible peptic ulcer disease and H. pylori infection. Informed consent for this procedure was obtained prior to the administration of any medication. The risks of the procedure which include bleeding, perforation, infection, complications of sedation and the possibility I could miss something have been explained to the patient and he has indicated his consent by signing. DESCRIPTION OF PROCEDURE: Propofol was slowly titrated before and during this procedure for patient comfort by the anesthesia service. The CanDiagn upper videoscope was introduced through the upper esophageal sphincter and advanced under direct visualization to the descending duodenum. Findings are noted on withdrawal of the scope. The duodenal mucosa appears normal throughout its entirety. Pylorus, normal mucosa. Antrum, the mucosa lining of the antrum of the stomach is very pale in appearance compared to the rest of the stomach, there is a transition zone between the antrum and body of the stomach that is erythematous and biopsies were obtained x 2 from this area for histopathology, consider random gastric biopsies. Body, erythematous mucosa with edema of the folds, the folds appear enlarged, biopsies are obtained times 2 from the body of the stomach and placed in the same jar as random biopsies of the stomach. Cardia and fundus, normal mucosa. Retroflex view did not reveal any hiatal hernia. Good hemostasis was noted after all biopsies. The scope was withdrawn into the esophagus. The Z-line is appropriately located at the top of the gastric folds and appears normal. The esophageal mucosa appears normal throughout its entirety. The scope was withdrawn. The patient went to the recovery area in stable condition. He tolerated the procedure well. IMPRESSION: 1. Diffuse edema and some erythema of the stomach as described above. Biopsies pending. [facility] [address] [place] [address] PROCEDURE REPORT Name: PATRICIA CARPIO Room #: 448-P ADM IN M.R.#: [id number] Admission: 04/12/17 Attend Phys: Ford Guaman MD Discharge: Date of : 63 Report #: [id number] 2. Normal esophagus and duodenum. RECOMMENDATIONS: Are to await the biopsy results and we will start the patient on a clear liquid diet and advance as tolerated today. Thank you very much once again for allowing me to participate in his care. <ELECTRONICALLY SIGNED> By: Em Spear DO 04/14/17 1239 1151 1228 Em Spear DO /nt
--- NOTE | ~2017-04-12 | EKG ---
[address] [place] [address] ELECTROCARDIOGRAM REPORT Name: PATRICIA CARPIO Room #: 448-P ADM IN M.R.#: [id number] Admission: 04/12/17 Attend Phys: Ford Guaman MD Discharge: Date of : 63 Report #: [id number] THIS REPORT FOR: //name// [facility] ED Test Date: 2017-04-12 Test Time: 18:42:53 Pat Name: PATRICIA CARPIO Department: Room: [facility] Gender: M Human Resources Professional: [id number] : 1965 Requested By: Mariola Yarbrough Order Number: [id number] MD: Benny Heller Measurements Intervals [place] Rate: 93 P: 56 MD: 206 QRS: -40 QRSD: 95 T: 133 QT: 386 QTc: 481 Interpretive Statements Sinus rhythm Prolonged MD interval Left atrial enlargement RSR' in V1 or V2, probably normal variant Inferior infarct, old T wave abnormality, consider lateral ischemia Compared to ECG 04/06/2017 20:13:11 no significant change was found Electronically Signed On 04-14-2017 8:01:30 CDT by Benny Heller [email or web address] <ELECTRONICALLY SIGNED> By: Benny Heller MD, [facility] 04/14/17 0801 184 184 Benny Heller MD, [facility] /EPI
--- NOTE | ~2017-04-12 | S ---
[facility] [address] SURGICAL PATH RPT PROCEDURE Name: JOEY RICHARDS Room #: 448-P DIS IN M.R.#: [id number] Admission: 04/12/17 Date of : 63 Discharge: 04/16/17 Report #: [id number] Path Case #: [id number] PATHOLOGY REPORT COLLECTION DATE: 04/14/2017 RECEIVED DATE: 04/15/2017 SUBMITTING PHYS: Dr. Em Spear OTHER PHYS: Dr. Ford Guaman SPECIMEN(S) RECEIVED: A.Bx of gastritis * * * * * * * * * * * * FINAL DIAGNOSIS: "BX of gastritis", biopsy: - Gastric mucosa with reactive changes and acute and chronic inflammation including patchy active gastritis. - Negative H. pylori immunohistochemical stain (block A1); control reacted appropriately. (CLW:cammy; d/t: 04/18/2017) PATHOLOGIST: Risa Awad M.D. REPORT ELECTRONICALLY SIGNED BY: Risa Awad M.D. DATE/TIME: 04/18/2017 23:50 * * * * * * * * * * * * GROSS PATHOLOGY: Received in formalin labeled "Joey Richards, biopsy of gastritis," are three segments of joaquin soft tissue measuring 0.7 x 0.5 x 0.1 cm in aggregate dimensions and ranging from 0.1 to 0.5 cm in maximum dimension. The specimen is submitted entirely in cassette A1. (CAA; 04/16/2017) CLINICAL HISTORY: N/V INITIAL CPT CODE(S): A; 70631, 56453 Professional services performed by [facility] at [facility] [address], [place] [address] Technical services performed by [facility] at [address] [place] [id number]. [facility] [address] [place] [address] SURGICAL PATH RPT PROCEDURE Name: JOEY RICHARDS Room #: 448-P DIS IN M.R.#: [id number] Admission: 04/12/17 Date of : 63 Discharge: 04/16/17 Report #: [id number] Path Case #: [id number] [facility] [address] [address] PHONE: [phone] DIRECTOR: Peewee Masters M.D. * * * END OF REPORT * * *
[~2017-04-12 18:35] MED LIST changes: +COREG6.25 MG PO
[2017-04-12 18:37] VITALS: BP 161/116
[2017-04-12 19:31] LABS: ABSOLUTE NEUTROPHILS 1.9 thou/uL (1.4-8.2); EOSINOPHILS 6.7 % (0.0-3.0); HEMATOCRIT 28.7 % (42.0-52.0); HEMOGLOBIN 9.1 gm/dL (14.0-18.0); LYMPHOCYTES 32.9 % (24.0-44.0); MANUAL DIFF NO; MCH 27.8 pg (26.0-34.0); MCHC 31.7 g/dL (28.0-37.0); MCV 87.9 fL (80.0-100.0); MONOCYTES 7.9 % (1.0-8.0); PLATELET COUNT 176 thou/uL (150-400); POLYS 50.5 % (36.0-66.0); RBC 3.27 mil/uL (4.50-6.00); RDW 20.9 % (10.5-14.5); WBC 3.8 thou/uL (4.0-11.0)
[2017-04-12 19:41] LABS: ANION GAP 10 mmol/L (7-16); BUN 27 mg/dL (7-18); CALCIUM 8.7 mg/dL (8.5-10.1); CHLORIDE 106 mmol/L (98-107); CO2 23 mmol/L (21-32); CREATININE 3.2 mg/dL (0.7-1.3); GLUCOSE 120 mg/dL (74-106); POTASSIUM 4.3 mmol/L (3.5-5.1); SODIUM 139 mmol/L (136-145)
[2017-04-12 19:49] LABS: ALBUMIN 2.6 g/dL (3.4-5.0); ALKALINE PHOSPHATASE 112 U/L (46-116); SGOT 15 U/L (15-37); SGPT 9 U/L (30-65); TOTAL BILIRUBIN 0.3 mg/dL (<0.1-1.0); TOTAL PROTEIN 7.6 g/dL (6.4-8.2); TROPONIN-I < 0.04 ng/mL (<0.04-0.07)
[2017-04-12 20:35] LABS: NT-PRO BRAIN NAT PEPTIDE 9344 pg/mL (<300)
[2017-04-12 22:54] VITALS: BP 160/124
[2017-04-13] MEDS ORDERED: IBUPROFEN 400400 M2 PO (01:53)
[2017-04-13 03:49] LABS: ANION GAP 9 mmol/L (7-16); BUN 28 mg/dL (7-18); CALCIUM 8.8 mg/dL (8.5-10.1); CHLORIDE 104 mmol/L (98-107); CO2 22 mmol/L (21-32); CREATININE 3.1 mg/dL (0.7-1.3); POTASSIUM 4.8 mmol/L (3.5-5.1); SODIUM 135 mmol/L (136-145); TROPONIN-I < 0.04 ng/mL (<0.04-0.07)
[2017-04-13 03:54] VITALS: BP 167/125
[2017-04-13 04:13] LABS: GLUCOSE 100 mg/dL (74-106)
[2017-04-13 06:51] LABS: HEMATOCRIT 30.5 % (42.0-52.0); HEMOGLOBIN 9.5 gm/dL (14.0-18.0); MCH 27.4 pg (26.0-34.0); MCHC 31.3 g/dL (28.0-37.0); MCV 87.7 fL (80.0-100.0); RBC 3.48 mil/uL (4.50-6.00); RDW 21.1 % (10.5-14.5); WBC 4.6 thou/uL (4.0-11.0)
[2017-04-13 08:35] VITALS: BP 151/117
[2017-04-13 16:56] VITALS: BP 153/114
[2017-04-13 20:30] VITALS: BP 150/118
[2017-04-14 06:20] VITALS: BP 149/114
[2017-04-14 08:00] VITALS: BP 145/107
[2017-04-14 12:45] VITALS: BP 131/106
[2017-04-14 13:39] VITALS: BP 131/106
[2017-04-14 13:44] VITALS: BP 131/106
[2017-04-14 20:34] VITALS: BP 134/110
[2017-04-15 06:37] VITALS: BP 142/115
[2017-04-15 11:10] VITALS: BP 143/108
[2017-04-15 14:22] LABS: ABSOLUTE NEUTROPHILS 1.8 thou/uL (1.4-8.2); BASOPHILS 0.9 % (0.0-2.0); EOSINOPHILS 6.5 % (0.0-3.0); HEMATOCRIT 28.7 % (42.0-52.0); HEMOGLOBIN 9.1 gm/dL (14.0-18.0); LYMPHOCYTES 32.4 % (24.0-44.0); MANUAL DIFF NO; MCH 27.4 pg (26.0-34.0); MCHC 31.7 g/dL (28.0-37.0); MCV 86.2 fL (80.0-100.0); MONOCYTES 8.3 % (1.0-8.0); PLATELET COUNT 173 thou/uL (150-400); POLYS 51.9 % (36.0-66.0); RBC 3.33 mil/uL (4.50-6.00); RDW 20.7 % (10.5-14.5); WBC 3.5 thou/uL (4.0-11.0)
[2017-04-15 14:34] LABS: ALBUMIN 2.5 g/dL (3.4-5.0); CALCIUM 8.8 mg/dL (8.5-10.1); CREATININE 3.2 mg/dL (0.7-1.3); POTASSIUM 4.2 mmol/L (3.5-5.1); TOTAL BILIRUBIN 0.4 mg/dL (<0.1-1.0); TOTAL PROTEIN 7.3 g/dL (6.4-8.2)
[2017-04-15 16:00] VITALS: BP 135/98
[2017-04-15 22:00] VITALS: BP 147/107
[2017-04-16] VITALS: BP 147/107
[2017-04-16 06:30] VITALS: BP 146/105
[2017-04-16 08:00] VITALS: BP 140/107
[2017-04-16] MEDS ORDERED: NORCO 10-325 T1 EACH PO (10:23)
[2017-04-16] MEDS ORDERED: MS CONTIN15 MG PO (10:23)
[2017-04-16] MEDS ORDERED: PANCREAZE DR 11 EAC2 PO (10:24)
[2017-04-16] MEDS ORDERED: COMBIVENT INH (10:24)
[2017-04-16] MEDS ORDERED: NEXIUM40 MG PO (10:24)
== END 2017-04-16 11:10 | disposition home or self-care (01) | DRG 438 ==
LOC: ER 18:35 → 4S 21:05 → EROBS 21:05 → 4S 22:45
PROVIDERS: Emergency Medicine; Hospitalist; Physician Assistant
PROC: 0DB68ZX Excision of Stomach, Via Natural or Artificial Opening Endoscopic, Diagnostic (ICD-10-PCS; principal; 2017-04-14)
DX: K86.1 Other chronic pancreatitis (principal); I50.43 Acute on chronic combined systolic (congestive) and diastolic (congestive) heart failure; B20 Human immunodeficiency virus [HIV] disease; N17.9 Acute kidney failure, unspecified; I13.0 Hypertensive heart and chronic kidney disease with heart failure and stage 1 through stage 4 chronic kidney disease, or unspecified chronic kidney disease; I42.8 Other cardiomyopathies; N18.4 Chronic kidney disease, stage 4 (severe); K29.70 Gastritis, unspecified, without bleeding; F43.10 Post-traumatic stress disorder, unspecified; Z95.810 Presence of automatic (implantable) cardiac defibrillator; Z99.81 Dependence on supplemental oxygen; Z87.891 Personal history of nicotine dependence; Z88.1 Allergy status to other antibiotic agents; Z88.8 Allergy status to other drugs, medicaments and biological substances; J43.9 Emphysema, unspecified; Z79.82 Long term (current) use of aspirin; Z79.899 Other long term (current) drug therapy
CPT/HCPCS: 10100; 62110; 62900; 70005

== ENCOUNTER 2017-04-20 20:40 | Emergency (ER) | payer OTHER ==
[~2017-04-20] VITALS: Ht 182.9 cm; Wt 77.1 kg
--- NOTE | ~2017-04-20 | EKG ---
[place] [address] [facility] [place] [address] ELECTROCARDIOGRAM REPORT Name: PATRICIA CARPIO [id number] Admission: 04/20/17 Attend Phys: Discharge: 04/21/17 Date of : 63 Report #: [id number] THIS REPORT FOR: //name// [facility] ED Test Date: 2017-04-20 Test Time: 20:49:32 Pat Name: PATRICIA CARPIO Department: Room: Gender: M Death Claim Clerk: MZOOK : 1965 Requested By: Antonella Hummel Order Number: [id number] MD: Benny Heller Measurements Intervals [place] Rate: 101 P: 51 [place]: 202 QRS: -34 QRSD: 94 T: 116 QT: 353 QTc: 458 Interpretive Statements Sinus tachycardia Left axis deviation RSR' in V1 or V2, probably normal variant Abnrm T, consider ischemia, anterolateral lds Compared to ECG 04/12/2017 18:42:53 no significant change was found Electronically Signed On 04-22-2017 8:04:53 CDT by Benny Heller [email or web address] <ELECTRONICALLY SIGNED> By: Benny Heller MD, [facility] 04/22/17 0804 48 48 Benny Heller MD, [facility] /EPI
[~2017-04-20 20:40] MED LIST changes: +IBUPROFEN 400400 M2 PO; +NEXIUM40 MG PO; +PANCREAZE DR 11 EAC2 PO
[2017-04-20 21:13] LABS: ABSOLUTE NEUTROPHILS 2.8 thou/uL (1.4-8.2); BASOPHILS 1.7 % (0.0-2.0); EOSINOPHILS 4.2 % (0.0-3.0); HEMATOCRIT 30.8 % (42.0-52.0); HEMOGLOBIN 9.5 gm/dL (14.0-18.0); LYMPHOCYTES 29.7 % (24.0-44.0); MONOCYTES 6.7 % (1.0-8.0); PLATELET COUNT 163 thou/uL (150-400); POLYS 57.7 % (36.0-66.0); RBC 3.54 mil/uL (4.50-6.00); RDW 20.7 % (10.5-14.5); WBC 4.8 thou/uL (4.0-11.0)
[2017-04-20 21:17] LABS: ANION GAP 9 mmol/L (7-16); BUN 22 mg/dL (7-18); CALCIUM 8.9 mg/dL (8.5-10.1); CHLORIDE 105 mmol/L (98-107); CO2 23 mmol/L (21-32); CREATININE 2.8 mg/dL (0.7-1.3); GLUCOSE 132 mg/dL (74-106); POTASSIUM 4.9 mmol/L (3.5-5.1); SODIUM 137 mmol/L (136-145)
[2017-04-20 21:21] LABS: MANUAL DIFF NO
[2017-04-20 21:27] LABS: TROPONIN-I < 0.04 ng/mL (<0.04-0.07)
[2017-04-20 21:36] LABS: ALBUMIN 2.7 g/dL (3.4-5.0); DIRECT BILIRUBIN 0.1 mg/dL (<0.1-0.3); TOTAL BILIRUBIN 0.4 mg/dL (<0.1-1.0); TOTAL PROTEIN 7.7 g/dL (6.4-8.2)
[2017-04-20 22:05] LABS: NT-PRO BRAIN NAT PEPTIDE 8966 pg/mL (<300)
== END 2017-04-21 02:15 | disposition home or self-care (01) ==
LOC: ER 20:40
PROVIDERS: Emergency Medicine
DX: R06.00 Dyspnea, unspecified (principal); I13.0 Hypertensive heart and chronic kidney disease with heart failure and stage 1 through stage 4 chronic kidney disease, or unspecified chronic kidney disease; N18.4 Chronic kidney disease, stage 4 (severe); I50.9 Heart failure, unspecified; G89.29 Other chronic pain; B20 Human immunodeficiency virus [HIV] disease; Z88.1 Allergy status to other antibiotic agents; Z88.8 Allergy status to other drugs, medicaments and biological substances; Z87.891 Personal history of nicotine dependence

== ENCOUNTER 2017-04-25 20:18 | Inpatient (IN) | payer OTHER ==
[~2017-04-25] VITALS: Ht 182.9 cm; Wt 80.7 kg
--- NOTE | ~2017-04-25 | HC ---
[facility] [place] [address] CONSULTATION Name: PATRICIA CARPIO Room #: 208-P ADM IN M.R.#: [id number] Admission: 04/25/17 Attend Phys: Viraj Stafford MD Discharge: Date of : 63 Report #: [id number] THIS REPORT FOR: //name// CC: FAM unknown Viraj Stafford REASON FOR CONSULTATION: Congestive heart failure. HISTORY OF PRESENT ILLNESS: The patient is a 51-year-old well known to [facility] for frequent readmissions. He has a history of a nonischemic cardiomyopathy, status post subcutaneous [employer] ICD implantation at , also has chronic renal insufficiency with baseline creatinine around 3, HIV and recurrent pancreatitis and pain issues. He also has problems with noncompliance. Apparently, he has been having worsening shortness of breath and presented to the emergency room. He still remains short of breath. He denies any chest pain. He denies PND or orthopnea. He denies presyncope or syncope. REVIEW OF SYSTEMS: A 12-point review of systems was performed and was negative other than what I mentioned above. PAST MEDICAL HISTORY: As above. SOCIAL HISTORY: He does not smoke. FAMILY HISTORY: Mother of an [place]. ALLERGIES: Have been reviewed include ADRIAN INHIBITORS. MEDICATIONS: Have been reviewed. PHYSICAL EXAMINATION: VITAL SIGNS: Temperature is 36.4, pulse 90, respiration 22, blood pressure 176/139, sats are 100% on oxygen. GENERAL: He is in no acute distress. HEENT: Oropharynx is clear. NECK: Supple, with no thyromegaly. HEART: Regular rate and rhythm with normal S1 and S2. There is an S3. He does have elevated jugular venous pressure at 45 degrees. LUNGS: Clear to auscultation bilaterally. ABDOMEN: Soft, nontender, nondistended with no hepatosplenomegaly. EXTREMITIES: There is no clubbing, cyanosis, edema. NEUROLOGIC: Cranial nerves 2-12 are intact. A 12-lead EKG shows sinus tachycardia and some chronic ST changes, unchanged from prior EKGs. [facility] [address] [place] [address] CONSULTATION Name: PATRICIA CARPIO Room #: 208-P ADM IN M.R.#: [id number] Admission: 04/25/17 Attend Phys: Viraj Stafford MD Discharge: Date of : 63 Report #: [id number] LABORATORY DATA: White count 4.1, hemoglobin 9.3, platelets 159. Coags: INR is 1.3. Chemistries: Sodium 137, potassium 4.5, creatinine is 2.8, which is near his baseline. Troponins are negative times 2 and his proBNP is elevated at 8974. ASSESSMENT: 1. Acute on chronic systolic heart failure. 2. Nonischemic cardiomyopathy. 3. Human immunodeficiency virus/acquired immune deficiency syndrome. 4. Subcutaneous implantable cardioverter-defibrillator. 5. Pancreatitis. 6. Medical noncompliance. PLAN: In summary, the patient is a 51-year-old with history of nonischemic cardiomyopathy who presents with acute on chronic LV systolic heart failure. I recommend continuing his current home medications and placing him on IV diuretics. We will see how he progresses over the next day or so. We will continue to follow. By: 1633 15 Dheeraj Dimas MD /nt
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
--- NOTE | ~2017-04-25 | EKG ---
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: SUNSHINE : 1965 Requested By: Varghese Trujillo Order Number: [id number] MD: Dheeraj Dimas Measurements Intervals [place] Rate: 109 P: 44 [place]: 186 QRS: -45 QRSD: 90 T: 108 QT: 339 QTc: 457 Interpretive Statements Sinus tachycardia Probable left atrial enlargement Left anterior fascicular block Borderline low voltage, extremity leads Abnormal T, consider ischemia, lateral leads, unchanged from prior ekg Electronically Signed On 04-26-2017 12:52:26 CDT by Dheeraj Dimas [email or web address] <ELECTRONICALLY SIGNED> By: Dheeraj Dimas MD 04/26/17 1252 16 16 Dheeraj Dimas MD /EPI
[2017-04-25 20:19] VITALS: BP 164/130
[2017-04-25 20:52] LABS: ABSOLUTE NEUTROPHILS 2.3 thou/uL (1.4-8.2); BASOPHILS 2.2 % (0.0-2.0); HEMATOCRIT 29.4 % (42.0-52.0); HEMOGLOBIN 9.3 gm/dL (14.0-18.0); LYMPHOCYTES 27.1 % (24.0-44.0); MANUAL DIFF NO; MCH 27.1 pg (26.0-34.0); MCHC 31.5 g/dL (28.0-37.0); MCV 85.9 fL (80.0-100.0); MONOCYTES 9.4 % (1.0-8.0); PLATELET COUNT 159 thou/uL (150-400); POLYS 57.3 % (36.0-66.0); RBC 3.43 mil/uL (4.50-6.00); RDW 20.4 % (10.5-14.5); WBC 4.1 thou/uL (4.0-11.0)
[2017-04-25 21:02] LABS: CALCIUM 8.6 mg/dL (8.5-10.1); CREATININE 2.8 mg/dL (0.7-1.3); POTASSIUM 4.5 mmol/L (3.5-5.1)
[2017-04-25 21:08] LABS: APTT 24.6 Seconds (24.5-32.8); INR 1.3
[2017-04-25 21:19] LABS: ALBUMIN 2.6 g/dL (3.4-5.0); CK-MB MASS 1.4 ng/mL (<0.5-3.6); MAGNESIUM 1.9 mg/dL (1.8-2.4); TOTAL BILIRUBIN 0.7 mg/dL (<0.1-1.0); TOTAL PROTEIN 7.6 g/dL (6.4-8.2); TROPONIN-I 0.06 ng/mL (<0.04-0.07)
[2017-04-25 21:31] LABS: ABG SAMPLE TYPE VENOUS; BE(vivo) -4.4 mmol/L (-2 to +3); HCO3 19.9 mmol/L (22.0-26.0); LACTATE 2.12 mmol/L (0.5-2.0); O2(CT) 11.2 mL/dL (15.0-23.0); O2Hb VENOUS 77.2 (65.0-85.0); PCO2 VENOUS 33.5 mmHg (41.0-51.0); PO2 VENOUS 46.3 mmHg (35.0-45.0); sO2 VENOUS 82.5 % (65.0-85.0); tCO2 20.9 mmol/L (24.0-30.0)
[2017-04-25 21:32] LABS: STICK SITE LINE
[2017-04-25 22:16] VITALS: BP 164/132
[2017-04-25 23:20] VITALS: BP 164/125
[2017-04-26 09:00] VITALS: BP 169/135
[2017-04-26 12:25] VITALS: BP 176/139
[2017-04-26 17:00] VITALS: BP 159/124
[2017-04-26 20:15] VITALS: BP 142/110
[2017-04-26 23:19] VITALS: BP 154/118
[2017-04-27 04:16] VITALS: BP 136/103
[2017-04-27 07:20] VITALS: BP 157/115
[2017-04-27 07:57] LABS: CALCIUM 8.4 mg/dL (8.5-10.1); POTASSIUM 5.2 mmol/L (3.5-5.1)
[2017-04-27 13:10] VITALS: BP 143/106
[2017-04-27 16:52] VITALS: BP 138/106
[2017-04-27 20:06] VITALS: BP 141/106
[2017-04-27 23:57] VITALS: BP 135/102
[2017-04-28 00:02] VITALS: BP 134/92
[2017-04-28 03:49] VITALS: BP 142/106
[2017-04-28 07:45] VITALS: BP 133/84
[2017-04-28 10:33] LABS: CALCIUM 8.4 mg/dL (8.5-10.1); CREATININE 2.8 mg/dL (0.7-1.3); POTASSIUM 3.7 mmol/L (3.5-5.1)
[2017-04-28 11:55] VITALS: BP 129/99
[2017-04-28 15:40] VITALS: BP 110/66
[2017-04-28 19:26] VITALS: BP 113/67
[2017-04-29 04:13] VITALS: BP 138/97
[2017-04-29 07:36] VITALS: BP 134/98
[2017-04-29] MEDS ORDERED: IMDUR 60 MG TAB60 M1 PO (09:13)
[2017-04-29] MEDS ORDERED: NORCO 10-325 T1 EACH PO (09:14)
[2017-04-29] MEDS ORDERED: AMLODIPINE BESYL5 M1 PO (09:14)
[2017-04-29] MEDS ORDERED: MS CONTIN15 MG PO (09:14)
[2017-04-29] MEDS ORDERED: DEMADEX 2020 MG/1 TA PO (09:15)
[2017-04-29 09:59] VITALS: BP 134/98
[2017-04-29 10:01] VITALS: BP 134/98
[2017-04-29 10:17] VITALS: BP 134/98
== END 2017-04-29 10:43 | disposition home or self-care (01) | DRG 291 ==
LOC: ER 20:18 → 2N 21:58 → EROBS 21:58 → 2N 22:40
PROVIDERS: Emergency Medicine; Hospitalist; Nurse Practitioner Adult Health
DX: I13.0 Hypertensive heart and chronic kidney disease with heart failure and stage 1 through stage 4 chronic kidney disease, or unspecified chronic kidney disease (principal); I50.23 Acute on chronic systolic (congestive) heart failure; B20 Human immunodeficiency virus [HIV] disease; N17.9 Acute kidney failure, unspecified; K86.1 Other chronic pancreatitis; J44.1 Chronic obstructive pulmonary disease with (acute) exacerbation; N18.4 Chronic kidney disease, stage 4 (severe); I42.8 Other cardiomyopathies; G89.29 Other chronic pain; M54.9 Dorsalgia, unspecified; R10.9 Unspecified abdominal pain; R07.9 Chest pain, unspecified; Z91.14 Patient's other noncompliance with medication regimen; Z88.1 Allergy status to other antibiotic agents; Z88.8 Allergy status to other drugs, medicaments and biological substances; Z87.891 Personal history of nicotine dependence; Z82.49 Family history of ischemic heart disease and other diseases of the circulatory system; Z79.82 Long term (current) use of aspirin; Z79.899 Other long term (current) drug therapy
CPT/HCPCS: 10081

== ENCOUNTER 2017-05-05 19:29 | Emergency (ER) | payer OTHER ==
[~2017-05-05] VITALS: Ht 182.9 cm; Wt 84.4 kg
--- NOTE | ~2017-05-05 | EKG ---
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: KKODJOVI : 1965 Requested By: Antonella Hummel Order Number: [id number] MD: Dheeraj Dimas Measurements Intervals [place] Rate: 98 P: 53 MT: 199 QRS: -37 QRSD: 98 T: 109 QT: 398 QTc: 509 Interpretive Statements Sinus rhythm Borderline prolonged MT interval Left atrial enlargement Left axis deviation Abnormal T, consider ischemia, lateral leads Prolonged QT interval Electronically Signed On 05-06-2017 13:58:00 CDT by Dheeraj Dimas [email or web address] <ELECTRONICALLY SIGNED> By: Dheeraj Dimas MD 05/06/17 1358 1940 39 Dheeraj Dimas MD /MEE
[~2017-05-05 19:29] MED LIST changes: +DEMADEX 2020 MG/1 TA PO; +IMDUR 60 MG TAB60 M1 PO
[2017-05-05 21:09] LABS: ABSOLUTE NEUTROPHILS 2.3 thou/uL (1.4-8.2); BASOPHILS 1.3 % (0.0-2.0); EOSINOPHILS 4.9 % (0.0-3.0); HEMATOCRIT 29.7 % (42.0-52.0); HEMOGLOBIN 9.4 gm/dL (14.0-18.0); LYMPHOCYTES 29.4 % (24.0-44.0); MCHC 31.6 g/dL (28.0-37.0); MCV 85.5 fL (80.0-100.0); MONOCYTES 9.8 % (1.0-8.0); PLATELET COUNT 179 thou/uL (150-400); POLYS 54.6 % (36.0-66.0); RBC 3.48 mil/uL (4.50-6.00); RDW 19.4 % (10.5-14.5); WBC 4.1 thou/uL (4.0-11.0)
[2017-05-05 21:15] LABS: MANUAL DIFF NO
[2017-05-05 21:24] LABS: ANION GAP 5 mmol/L (7-16); BUN 22 mg/dL (7-18); CALCIUM 8.9 mg/dL (8.5-10.1); CHLORIDE 106 mmol/L (98-107); CO2 27 mmol/L (21-32); CREATININE 2.6 mg/dL (0.7-1.3); GLUCOSE 98 mg/dL (74-106); POTASSIUM 4.1 mmol/L (3.5-5.1); SODIUM 138 mmol/L (136-145)
[2017-05-05 21:32] LABS: TROPONIN-I < 0.04 ng/mL (<0.04-0.07)
[2017-05-05] MEDS ORDERED: NORCO 5-325 TA1 EACH PO (22:08)
[2017-05-05] MEDS ORDERED: COMBIVENT INH (22:08)
[2017-05-05] MEDS ORDERED: HYDROCODONE-AP1 EACH PO (22:45)
== END 2017-05-05 22:57 | disposition home or self-care (01) ==
LOC: ER 19:29
PROVIDERS: Emergency Medicine
DX: R07.89 Other chest pain (principal); R06.00 Dyspnea, unspecified; I13.0 Hypertensive heart and chronic kidney disease with heart failure and stage 1 through stage 4 chronic kidney disease, or unspecified chronic kidney disease; N18.4 Chronic kidney disease, stage 4 (severe); I50.9 Heart failure, unspecified; J44.9 Chronic obstructive pulmonary disease, unspecified; Z79.82 Long term (current) use of aspirin; Z88.1 Allergy status to other antibiotic agents; Z88.8 Allergy status to other drugs, medicaments and biological substances; Z87.891 Personal history of nicotine dependence

== ENCOUNTER 2017-12-21 15:24 | Emergency (ER) | payer OTHER ==
[~2017-12-21] VITALS: Ht 182.9 cm; Wt 77.1 kg
--- NOTE | ~2017-12-21 | EKG ---
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 Development Manager: VANESSA : 1965 Requested By: Mariola Yarbrough Order Number: [id number] MD: Benny Heller Measurements Intervals [place] Rate: 107 P: 62 VT: 187 QRS: -45 QRSD: 94 T: 138 QT: 362 QTc: 483 Interpretive Statements Sinus tachycardia RSR' in V1 or V2, right VCD Probable LVH with secondary repol abnrm Inferior infarct, old Compared to ECG 05/05/2017 19:40:17 No significant change was found Electronically Signed On 12-22-2017 8:36:46 POT FLUXER by Benny Heller [email or web address] <ELECTRONICALLY SIGNED> By: Benny Heller MD, [facility] 12/22/17 0836 1534 1534 Benny Heller MD, [facility] /EPI
[~2017-12-21 15:24] MED LIST changes: +HYDROCODONE-AP1 EACH PO
[2017-12-21 16:26] LABS: ABSOLUTE NEUTROPHILS 1.9 thou/uL (1.4-8.2); BASOPHILS 1.6 % (0.0-2.0); EOSINOPHILS 1.8 % (0.0-3.0); HEMATOCRIT 33.4 % (42.0-52.0); HEMOGLOBIN 10.4 gm/dL (14.0-18.0); LYMPHOCYTES 33.5 % (24.0-44.0); MCH 26.4 pg (26.0-34.0); MCHC 31.1 g/dL (28.0-37.0); MCV 84.9 fL (80.0-100.0); PLATELET COUNT 166 thou/uL (150-400); POLYS 53.1 % (36.0-66.0); RBC 3.93 mil/uL (4.50-6.00); RDW 17.8 % (10.5-14.5); WBC 3.5 thou/uL (4.0-11.0)
[2017-12-21 16:42] LABS: CALCIUM 8.9 mg/dL (8.5-10.1); CREATININE 3.2 mg/dL (0.7-1.3); POTASSIUM 4.6 mmol/L (3.5-5.1)
[2017-12-21 16:48] LABS: ALBUMIN 2.6 g/dL (3.4-5.0); TOTAL BILIRUBIN 0.4 mg/dL (<0.1-1.0); TOTAL PROTEIN 6.8 g/dL (6.4-8.2); TROPONIN-I 0.04 ng/mL (<0.06)
[2017-12-21 18:04] VITALS: BP 146/115
== END 2017-12-21 18:07 | disposition home or self-care (01) ==
LOC: ER 15:24
PROVIDERS: Physician Assistant
DX: R10.9 Unspecified abdominal pain (principal); R07.9 Chest pain, unspecified; G89.29 Other chronic pain; B20 Human immunodeficiency virus [HIV] disease; J44.9 Chronic obstructive pulmonary disease, unspecified; I12.9 Hypertensive chronic kidney disease with stage 1 through stage 4 chronic kidney disease, or unspecified chronic kidney disease; N18.4 Chronic kidney disease, stage 4 (severe); I13.0 Hypertensive heart and chronic kidney disease with heart failure and stage 1 through stage 4 chronic kidney disease, or unspecified chronic kidney disease; I50.9 Heart failure, unspecified; Z87.891 Personal history of nicotine dependence; Z88.1 Allergy status to other antibiotic agents; Z88.8 Allergy status to other drugs, medicaments and biological substances

== ENCOUNTER 2018-07-25 19:04 | Emergency (ER) | payer MEDICARE ==
[~2018-07-25] VITALS: Ht 182.9 cm; Wt 77.1 kg
[2018-07-25] MEDS ORDERED: DAPSONE100 MG PO (19:12)
[2018-07-25] MEDS ORDERED: COREG25 MG PO (19:12)
[2018-07-25] MEDS ORDERED: [UNRECOGNIZED DRUG - OTHER] PO (19:13)
[2018-07-25] MEDS ORDERED: IRON325 PO (19:14)
[2018-07-25] MEDS ORDERED: CALCITRIOL0.25 MCG PO (19:14)
[2018-07-25] MEDS ORDERED: ARYMO ER30 MG PO (19:16)
[2018-07-25] MEDS ORDERED: PRILOSEC 20 MG20 MG PO (19:18)
[2018-07-25] MEDS ORDERED: ONDANSETRON HCL4 M2 PO (19:18)
[2018-07-25] MEDS ORDERED: NORCO 10-325 T1 EACH PO (19:19)
[2018-07-25] MEDS ORDERED: MIRALAX17 GM PO (19:20)
[2018-07-25] MEDS ORDERED: DEMADEX20 MG PO (19:21)
[2018-07-25] MEDS ORDERED: COMBIVENT INH (19:23)
[2018-07-25] MEDS ORDERED: ISOSORBIDE DN 110 M1 PO (19:23)
[2018-07-25 20:47] LABS: HEMATOCRIT 30.6 % (42.0-52.0); HEMOGLOBIN 10.1 gm/dL (14.0-18.0); MCH 29.6 pg (26.0-34.0); MCV 89.7 fL (80.0-100.0); RBC 3.41 mil/uL (4.50-6.00); RDW 16.4 % (10.5-14.5); WBC 5.4 thou/uL (4.0-11.0)
[2018-07-25 20:53] LABS: CALCIUM 8.8 mg/dL (8.5-10.1); CREATININE 5.1 mg/dL (0.7-1.3); POTASSIUM 4.8 mmol/L (3.5-5.1)
[2018-07-25] MEDS ORDERED: BUTALB-APAP-CA1 EACH PO (22:48)
== END 2018-07-26 00:16 | disposition home or self-care (01) ==
LOC: ER 19:04
PROVIDERS: Emergency Medicine
DX: R51 Headache (principal); J43.9 Emphysema, unspecified; G89.29 Other chronic pain; M19.90 Unspecified osteoarthritis, unspecified site; I13.2 Hypertensive heart and chronic kidney disease with heart failure and with stage 5 chronic kidney disease, or end stage renal disease; N18.6 End stage renal disease; I50.9 Heart failure, unspecified; Z99.2 Dependence on renal dialysis; Z21 Asymptomatic human immunodeficiency virus [HIV] infection status; I42.9 Cardiomyopathy, unspecified; Z79.899 Other long term (current) drug therapy; Z88.1 Allergy status to other antibiotic agents; Z88.8 Allergy status to other drugs, medicaments and biological substances; Z87.891 Personal history of nicotine dependence

== ENCOUNTER 2018-08-13 12:44 | Emergency (ER) | payer MEDICARE, OTHER ==
[~2018-08-13] VITALS: Ht 182.9 cm; Wt 77.1 kg
[~2018-08-13 12:44] MED LIST changes: +ARYMO ER30 MG PO; +BUTALB-APAP-CA1 EACH PO; +CALCITRIOL0.25 MCG PO; +DAPSONE100 MG PO; +DEMADEX20 MG PO; +IRON325 PO; +ISOSORBIDE DN 110 M1 PO; +MIRALAX17 GM PO; +ONDANSETRON HCL4 M2 PO; +PRILOSEC 20 MG20 MG PO; +[UNRECOGNIZED DRUG - OTHER] PO
[2018-08-13 13:48] LABS: ABSOLUTE NEUTROPHILS 3.3 thou/uL (1.4-8.2); BASOPHILS 1.1 % (0.0-2.0); EOSINOPHILS 2.9 % (0.0-3.0); HEMOGLOBIN 10.3 gm/dL (14.0-18.0); LYMPHOCYTES 25.7 % (24.0-44.0); MCH 30.5 pg (26.0-34.0); MCHC 33.3 g/dL (28.0-37.0); MCV 91.5 fL (80.0-100.0); MONOCYTES 8.1 % (1.0-8.0); PLATELET COUNT 184 thou/uL (150-400); POLYS 62.2 % (36.0-66.0); RBC 3.39 mil/uL (4.50-6.00); RDW 18.8 % (10.5-14.5); WBC 5.4 thou/uL (4.0-11.0)
[2018-08-13 13:54] LABS: CREATININE 5.8 mg/dL (0.7-1.3); POTASSIUM 4.8 mmol/L (3.5-5.1)
[2018-08-13 14:08] LABS: ALBUMIN 3.2 g/dL (3.4-5.0); TOTAL BILIRUBIN 0.5 mg/dL (<0.1-1.0); TOTAL PROTEIN 7.6 g/dL (6.4-8.2)
[2018-08-13 14:24] LABS: DIRECT BILIRUBIN 0.2 mg/dL (<0.1-0.3)
[2018-08-13 16:06] LABS: ANISOCYTOSIS 2+
[2018-08-13 16:07] LABS: MACROCYTES 1+
== END 2018-08-13 15:29 | disposition home or self-care (01) ==
LOC: ER 12:44
PROVIDERS: Emergency Medicine
DX: I13.0 Hypertensive heart and chronic kidney disease with heart failure and stage 1 through stage 4 chronic kidney disease, or unspecified chronic kidney disease (principal); N18.4 Chronic kidney disease, stage 4 (severe); R11.10 Vomiting, unspecified; R10.9 Unspecified abdominal pain; J44.9 Chronic obstructive pulmonary disease, unspecified; M54.9 Dorsalgia, unspecified; G89.29 Other chronic pain; I50.9 Heart failure, unspecified; I42.9 Cardiomyopathy, unspecified; M19.90 Unspecified osteoarthritis, unspecified site; Z86.2 Personal history of diseases of the blood and blood-forming organs and certain disorders involving the immune mechanism; Z87.891 Personal history of nicotine dependence; Z88.1 Allergy status to other antibiotic agents; Z88.8 Allergy status to other drugs, medicaments and biological substances; Z21 Asymptomatic human immunodeficiency virus [HIV] infection status

== ENCOUNTER 2019-01-30 23:59 | Inpatient (IN) | payer OTHER ==
[~2019-01-30] VITALS: Ht 182.9 cm; Wt 74.8 kg
--- NOTE | ~2019-01-30 | HC ---
[facility] [place] [address] CONSULTATION Name: PATRICIA CARPIO Room #: 213-P [facility] IN M.R.#: [id number] Admission: 01/31/19 ������������������ Attend Phys: Riley Khanna MD Discharge: 01/31/19 ������������������ Date of : 63 Report #: [id number] THIS REPORT FOR: //name// CC: Riley Castellanos DATE OF SERVICE: 01/31/2019 REASON FOR PRESENTATION: Chest pain. REASON FOR CONSULTATION: End-stage renal disease. HISTORY OF PRESENT ILLNESS: A well-known patient to me, 53-year-old who moved from [place]. He has medical noncompliance. He presented with shortness of breath and chest pain. He was supposed to have his dialysis done at 05:00 this morning; however, he decided to present to the Emergency Room because of his shortness of breath. This was associated with some right-sided chest pain. He also reported abdominal discomfort. He is supposed to be wearing BiPAP, but he refuses to wear. He has end-stage cardiomyopathy with ejection fractions of around 20%. He is noncompliant with his fluid and salt restrictions. I am being consulted to manage his end-stage renal disease related issues. PAST MEDICAL HISTORY: 1. End-stage renal disease. 2. Human immunodeficiency virus. 3. Cardiomyopathy. 4. Poor social support. 5. Obstructive sleep apnea. 6. Pancreatitis. 7. Syphilis. 8. Chlamydia. 9. Herpes. ALLERGIES: ADRIAN INHIBITOR. FAMILY HISTORY: No known kidney disease in the family. REVIEW OF SYSTEMS: GENERAL: Significant for weakness. CARDIOVASCULAR: Chest pain and shortness of breath. PULMONARY: Shortness of breath. GASTROINTESTINAL: Abdominal pain. MEDICATIONS: 1. Dapsone. [facility] [address] [place] [address] CONSULTATION Name: PATRICIA CARPIO Room #: 213-P [facility] IN M.R.#: [id number] Admission: 01/31/19 ������������������ Attend Phys: Riley Khanna MD Discharge: 01/31/19 ������������������ Date of : 63 Report #: [id number] 2. Ritonavir. 3. Carvedilol. 4. Torsemide. SOCIAL HISTORY: He denies drug or alcohol abuse. PHYSICAL EXAMINATION: VITAL SIGNS: Temperature 36.5, pulse rate 85, blood pressure 130/102. HEAD AND NECK: No jugular venous distention present. CHEST: Mild bilateral crackles. CARDIOVASCULAR: No rub. ABDOMEN: Soft, nontender. LOWER EXTREMITIES: +2 edema. LABORATORY VALUES: Reveal sodium 134, potassium 6.4. CHEST X-RAY: Mild pulmonary edema with mild cardiomegaly. ASSESSMENT, IMPRESSION, PLAN: 1. End-stage renal disease. 2. Hyperkalemia. 3. Noncompliance. 4. Obstructive sleep apnea. 5. Human immunodeficiency virus. 6. We will arrange for the patient to have his usual hemodialysis today. 7. Defer the management of his other comorbid conditions to the primary team. ��������������������������������������������� ���������������������������������������� By: ��������������������������������������������� 0947 26 Jarod Glover, /nt
[2019-01-31] VITALS: BP 155/124
[2019-01-31 00:18] LABS: BE(vivo) -3.6 mmol/L (-2 to +3); HCO3 23.1 mmol/L (22.0-26.0); PCO2 48.1 mmHg (35.0-45.0); PO2 497.7 mmHg (80.0-100.0); sO2 99.9 % (92.0-98.0)
[2019-01-31 00:19] LABS: pH 7.299 (7.360-7.450)
[2019-01-31 00:45] LABS: ABSOLUTE NEUTROPHILS 3.6 thou/uL (1.4-8.2); BASOPHILS 0.8 % (0.0-2.0); EOSINOPHILS 3.4 % (0.0-3.0); HEMATOCRIT 38.3 % (42.0-52.0); HEMOGLOBIN 12.3 gm/dL (14.0-18.0); LYMPHOCYTES 23.4 % (24.0-44.0); MCH 29.7 pg (26.0-34.0); MCHC 32.1 g/dL (28.0-37.0); MCV 92.4 fL (80.0-100.0); PLATELET COUNT 115 thou/uL (150-400); POLYS 64.4 % (36.0-66.0); RBC 4.15 mil/uL (4.50-6.00); RDW 17.6 % (10.5-14.5); WBC 5.6 thou/uL (4.0-11.0)
[2019-01-31 00:54] LABS: CALCIUM 8.3 mg/dL (8.5-10.1)
[2019-01-31 00:55] LABS: POTASSIUM 5.2 mmol/L (3.5-5.1)
[2019-01-31 01:01] LABS: APTT 24.7 Seconds (24.5-32.8); PROTIME 10.6 Seconds (9.3-11.4)
[2019-01-31 01:03] LABS: ALBUMIN 3.7 g/dL (3.4-5.0); MAGNESIUM 2.2 mg/dL (1.8-2.4); TOTAL BILIRUBIN 0.3 mg/dL (<0.1-1.0); TOTAL PROTEIN 8.1 g/dL (6.4-8.2); TROPONIN-I 0.1 ng/mL (<0.06)
[2019-01-31 03:52] VITALS: BP 138/100
--- NOTE | 2019-01-31 05:14 | NUR ---
ADMIT,PT ADMITTED FROM ED WITH SOA,CHEST PAIN AND ESRD.PT ARRIVED TO UNIT VIA W/C.ON O2 AT [facility].PT DENIES CHEST PAIN UPON ARRIVAL TO UNIT,C/O BACK PAIN THAT WAS CONTROLLED WITH PAIN MEDS.LABOURED BREATHING WITH USE OF ACCESSORY MUSCLES,RT ADMINISTERED NEB TX.LUNGS SOUNDS NOTED WHEEZING THROUGHOUT.PT REFUSED TO SIGN FALL CONSENT FORM.ON MONITOR SINUS TACHY AT 100.DIALYSIS CATHETER ON THE LEFT CHEST,COVERED WITH DRESSING.PT ON HD ON .NO OPEN WOUNDS OR SKIN LESIONS NOTED.UP TO BR WITH STEADY GAIT.PT DENIES ANY OTHER NEEDS AT THIS TIME.WILL CONT TO MONITOR PER POC.
[2019-01-31 05:33] VITALS: BP 142/107
[2019-01-31 07:13] LABS: CALCIUM 8.3 mg/dL (8.5-10.1); CREATININE 6.3 mg/dL (0.7-1.3); TROPONIN-I 0.07 ng/mL (<0.06)
[2019-01-31 07:17] LABS: POTASSIUM 6.4 mmol/L (3.5-5.1)
[2019-01-31 08:03] VITALS: BP 132/102
--- NOTE | 2019-01-31 08:06 | EKG ---
[address] [place] [address] ELECTROCARDIOGRAM REPORT Name: PATRICIA CARPIO Room #: 213-P ADM IN M.R.#: [id number] ������������������ Admission: 01/31/19 ������������������ Attend Phys: Riley Khanna MD Discharge: ������������������ Date of : 63 Report #: [id number] ����������������������������������������������������������������� [id number] THIS REPORT FOR: //name// [facility] ED Test Date: 2019-01-31 Test Time: 00:05:28 Pat Name: PATRICIA CARPIO Department: Room: 213 Gender: M 1St Pressman: ALISHA : 1965 Requested By: Varghese Trujillo Order Number: [id number] MD: Benny Heller Measurements Intervals [place] Rate: 102 P: 38 AR: 177 QRS: -63 QRSD: 102 T: 131 QT: 380 QTc: 496 Interpretive Statements Sinus tachycardia Inferior infarct, old T-wave abnormality, consider lateral ischemia Compared to ECG 12/21/2017 15:34:28 No significant changes Electronically Signed On 01-31-2019 8:06:28 CDT by Benny Heller [email or web address] ��������������������������������������������� <ELECTRONICALLY SIGNED> ���������������������������������������� By: Benny Heller MD, [facility] ��������������������������������������������� 01/31/19 0806 0005 0005 Benny Heller MD, [facility] /EPI
[2019-01-31 11:12] VITALS: BP 134/101
[2019-01-31 13:33] VITALS: BP 134/101
--- NOTE | 2019-01-31 13:48 | NUR ---
AAAOX. NO C/O PAIN OR DISCOMFORT. DIALYSIS COMPLETED. SALINE LOCK REMOVED. UAL IN HALLS WITH SLOW STEADY GAIT. DISHCARGED TO HOME.
== END 2019-01-31 13:53 | disposition home or self-care (01) | DRG 291 ==
LOC: ER 23:59 → EROBS 01-31 02:59 → 2N 01-31 02:59
PROVIDERS: Emergency Medicine; Nurse Practitioner Family; ADMIT Hospitalist
PROC: 5A1D70Z Performance of Urinary Filtration, Intermittent, Less than 6 Hours Per Day (ICD-10-PCS; principal; 2019-01-31)
DX: I13.2 Hypertensive heart and chronic kidney disease with heart failure and with stage 5 chronic kidney disease, or end stage renal disease (principal); I50.33 Acute on chronic diastolic (congestive) heart failure; J96.22 Acute and chronic respiratory failure with hypercapnia; N18.6 End stage renal disease; J44.1 Chronic obstructive pulmonary disease with (acute) exacerbation; I42.9 Cardiomyopathy, unspecified; M19.90 Unspecified osteoarthritis, unspecified site; G47.33 Obstructive sleep apnea (adult) (pediatric); G89.4 Chronic pain syndrome; Z21 Asymptomatic human immunodeficiency virus [HIV] infection status; E87.5 Hyperkalemia; Z91.14 Patient's other noncompliance with medication regimen; Z87.891 Personal history of nicotine dependence; Z95.810 Presence of automatic (implantable) cardiac defibrillator; Z99.2 Dependence on renal dialysis; Z79.82 Long term (current) use of aspirin; Z79.899 Other long term (current) drug therapy; Z88.1 Allergy status to other antibiotic agents; Z88.8 Allergy status to other drugs, medicaments and biological substances; Z82.49 Family history of ischemic heart disease and other diseases of the circulatory system
CPT/HCPCS: 10081; 32100

== ENCOUNTER 2019-02-01 22:33 | Emergency (ER) | payer OTHER ==
[~2019-02-01] VITALS: Ht 182.9 cm; Wt 79.4 kg
[2019-02-02 00:08] LABS: ABSOLUTE NEUTROPHILS 3.1 thou/uL (1.4-8.2); EOSINOPHILS 0.7 % (0.0-3.0); HEMATOCRIT 37.3 % (42.0-52.0); LYMPHOCYTES 26.3 % (24.0-44.0); MCH 29.8 pg (26.0-34.0); MCHC 32.1 g/dL (28.0-37.0); MCV 92.7 fL (80.0-100.0); MONOCYTES 6.4 % (1.0-8.0); PLATELET COUNT 115 thou/uL (150-400); POLYS 65.6 % (36.0-66.0); RBC 4.02 mil/uL (4.50-6.00); RDW 17.9 % (10.5-14.5); WBC 4.7 thou/uL (4.0-11.0)
[2019-02-02 00:19] LABS: CALCIUM 7.8 mg/dL (8.5-10.1); CREATININE 6.7 mg/dL (0.7-1.3); POTASSIUM 4.9 mmol/L (3.5-5.1)
[2019-02-02 00:29] LABS: TROPONIN-I 0.1 ng/mL (<0.06)
[2019-02-02] MEDS ORDERED: PREDNISONE50 MG PO (00:58)
[2019-02-02 02:43] VITALS: BP 137/107
--- NOTE | 2019-02-02 08:34 | EKG ---
[place] [address] [facility] [place] [address] ELECTROCARDIOGRAM REPORT Name: PATRICIA CARPIO Room [facility] Vikas#: [id number] ������������������ Admission: 02/01/19 ������������������ Attend Phys: Discharge: 02/02/19 ������������������ Date of : 63 Report #: [id number] ����������������������������������������������������������������� [id number] THIS REPORT FOR: //name// [facility] ED Test Date: 2019-02-01 Test Time: 22:43:01 Pat Name: PATRICIA CARPIO Department: Room: Gender: Heel Layer: addi : 1965 Requested By: Gabino Salas Order Number: [id number] MD: Benny Heller Measurements Intervals M[place] Rate: 85 P: 39 [place]: 219 QRS: -51 QRSD: 99 T: 145 QT: 446 QTc: 531 Interpretive Statements Sinus rhythm Left anterior fascicular block RSR' in V1 or V2, right VCD LVH with secondary repolarization abnormality Prolonged QT interval Compared to ECG 01/31/2019 00:05:28 Sinus tachycardia no longer present Electronically Signed On 02-02-2019 8:34:36 CDT by Benny Heller [email or web address] ��������������������������������������������� <ELECTRONICALLY SIGNED> ���������������������������������������� By: Benny Heller MD, [facility] ��������������������������������������������� 02/02/19 0834 2243 2243 Benny Heller MD, [facility] /EPI
== END 2019-02-02 02:45 | disposition home or self-care (01) ==
LOC: ER 22:33
PROVIDERS: Emergency Medicine
DX: I13.2 Hypertensive heart and chronic kidney disease with heart failure and with stage 5 chronic kidney disease, or end stage renal disease (principal); N18.6 End stage renal disease; I50.32 Chronic diastolic (congestive) heart failure; R06.02 Shortness of breath; R06.2 Wheezing; M54.9 Dorsalgia, unspecified; J44.9 Chronic obstructive pulmonary disease, unspecified; G89.29 Other chronic pain; Z88.1 Allergy status to other antibiotic agents; Z88.8 Allergy status to other drugs, medicaments and biological substances; Z86.2 Personal history of diseases of the blood and blood-forming organs and certain disorders involving the immune mechanism; Z87.891 Personal history of nicotine dependence

== ENCOUNTER 2019-02-04 18:13 | Inpatient (IN) | payer OTHER ==
[~2019-02-04] VITALS: Ht 185.4 cm; Wt 76.9 kg
[2019-02-04 18:13] VITALS: BP 214/155
[~2019-02-04 18:13] MED LIST changes: +PREDNISONE50 MG PO
--- NOTE | 2019-02-04 18:50 | NUR ---
IV ACCESS TEAM AT BEDSIDE FOR BLOOD DRAW AND IV INSERTION
[2019-02-04 19:01] LABS: ABSOLUTE NEUTROPHILS 5.2 thou/uL (1.4-8.2); BASOPHILS 0.1 % (0.0-2.0); HEMATOCRIT 36.2 % (42.0-52.0); HEMOGLOBIN 11.6 gm/dL (14.0-18.0); LYMPHOCYTES 9.7 % (24.0-44.0); MCH 29.4 pg (26.0-34.0); MONOCYTES 9.3 % (1.0-8.0); PLATELET COUNT 128 thou/uL (150-400); POLYS 80.9 % (36.0-66.0); RBC 3.93 mil/uL (4.50-6.00); RDW 18.1 % (10.5-14.5); WBC 6.4 thou/uL (4.0-11.0)
[2019-02-04 19:08] LABS: CALCIUM 8.2 mg/dL (8.5-10.1); POTASSIUM 5.5 mmol/L (3.5-5.1)
[2019-02-04 19:10] LABS: BE(vivo) -0.7 mmol/L (-2 to +3); HCO3 25.4 mmol/L (22.0-26.0); PCO2 47.8 mmHg (35.0-45.0); PO2 192.8 mmHg (80.0-100.0); pH 7.343 (7.360-7.450); sO2 99.2 % (92.0-98.0)
[2019-02-04 19:17] LABS: TROPONIN-I 0.08 ng/mL (<0.06)
--- NOTE | 2019-02-04 19:32 | NUR ---
PT IS REFUSING THE EKG TO BE DONE.
[2019-02-04 21:16] VITALS: BP 161/128
[2019-02-04 21:40] VITALS: BP 161/128
[2019-02-05 03:35] VITALS: BP 142/115
--- NOTE | 2019-02-05 07:33 | NUR ---
admit pt admitted to room 359 from ed being admitted with copd exacerbation, dialysis. pt had dialysis daily for the last thre days. bp elevated 160's to 170'/ over 100 - 120 hydralazine given pt refused whole dose of 100 mg but took 25 mg, at 0000, at 6 am pt took 50 mg hydralazine stated he didn't want to bottom out and end up having to stay in hospital. accuchecks wnl, on 4 liters o2, rt tx provided, lungs coarse tight and wheezy. pt ate boxed lunch reported pain at a level 9 out of 0/10 to lower back and left arm 50 mcg of fentanyl given x 2 with slight effect, pt reports no relief but doses off lightly after given. stting on side of bed leaning on bedside table in tripod position. expecting dialysis and discharge today per patient.
[2019-02-05 08:30] VITALS: BP 140/87
--- NOTE | 2019-02-05 09:12 | NUR ---
ASSUMED PT CARE AT 0700. ASSESSMENT COMPLETED AND IS CHARTED. VSS. PT IS AWAKE, ALERT/ORIENTED X4. PT VERY IRATE ABOUT VARIOUS PROBLEMS SINCE ADMISSION. UPSET ABOUT FOOD HE RECEIVED. STATES HE WAS NOT GIVEN A MENU LAST NIGHT AND HE CAN'T EAT WHAT WAS SENT. PT WANTS TO LEAVE FLOOR AND WAS TOLD THIS IS AGAINST POLICY. PT STATES HE WILL LEAVE AMA AND HAS BEFORE. PT UPSET ABOUT MEDICATION NOT BEING ORDERED. ALSO TOLD NURSE TO LEAVE HIS OXYGEN ALONE THAT HE IS ON 7L BECAUSE OF THE BUBBLER. PT REQUESTS TO SPEAK TO PATIENT ADVOCATE. MESSAGE LEFT FOR ADVOCATE WELL COMMUNITY DEVELOPMENT SPECIALIST FOR THIS UNIT. WILL CONTINUE WITH CURRENT CARE.
[2019-02-05 09:48] LABS: CALCIUM 8.3 mg/dL (8.5-10.1); CREATININE 5.8 mg/dL (0.7-1.3); POTASSIUM 5.8 mmol/L (3.5-5.1)
--- NOTE | 2019-02-05 12:40 | NUR ---
PT CONTINUES TO BE IRRITABLE. REFUSES HIS BLOOD PRESSURE BEING TAKEN. ALSO REFUSES MEDS UNTIL HE CAN GET ALL OF HIS ANTIVIRAL MEDS. UPSET WITH DIALYSIS NURSE FOR CHANGING ORIGIINAL PLANS. WILL CONTINUE WITH CURRENT CARE.
--- NOTE | 2019-02-05 14:55 | NUR ---
PT MORE CALM THIS AFTERNOON. HOME MEDS HAVE BEEN ORDERED AND OBTAINED. PT IN DIALYSIS NOW. PT IN A BETTER MOOD AFTER SPEAKING TO PT ADVOCATE. WILL CONTINUE WITH CURRENT CARE.
[2019-02-05 15:54] VITALS: BP 153/130
--- NOTE | 2019-02-05 17:40 | NUR ---
PT REFUSING TELEMETRY TO BE PUT BACK ON. COMMERCIAL SINGER HAS BEEN IN MULTIPLE TIMES TO REAPPLY PATCHES BUT PT REFUSES. PHYSICIAN NOTIFIED.
--- NOTE | 2019-02-06 02:25 | NUR ---
ASSESSMENT: PT REMAIN ALERT AND ORIENT TIMES FOUR, SOB WITH EXERTION. SITTING ON THE SIDE OF THE BED, LEANING ON THE TABLE TOP TO BREATHE. RT TX GIVEN ORDERED. PT WANT O2 AT 7 [address]IT[address] PER NC. PT REFUSED TO HAVE VITALS TAKEN AT 2000 AND AT 2400, STATE THAT HE WILL DECIDE IF HE'LL ALLOW THEM TO BE TAKEN LATER IN THE AM. NPO SINCE MN FOR POSSIBLE BRONC IN THE AM. WENT DOWN FOR CT SCAN OF THE CHEST THIS EVENING. PT IS GRUMPY AT TIMES AND THEN NICE AGAIN WHEN THERE IS SOMETHING THAT HE WANTS. REFUSES MONITOR, ALTHOUGH IT IS NOT OFFICALLY DISCONTINUED. LUNG SOUNDS ARE WHEEZY AND DIMINISHED IN LOWER BASES. SLOW PROGRESS TOWARDS DC GOALS, WILL CONTINUE TO MONITOR.
[2019-02-06 07:31] LABS: HEMATOCRIT 40.2 % (42.0-52.0); HEMOGLOBIN 12.8 gm/dL (14.0-18.0); MCH 29.9 pg (26.0-34.0); MCV 93.4 fL (80.0-100.0); RBC 4.3 mil/uL (4.50-6.00); RDW 18.2 % (10.5-14.5); WBC 7.2 thou/uL (4.0-11.0)
[2019-02-06 07:42] LABS: CALCIUM 8.2 mg/dL (8.5-10.1); CREATININE 5.1 mg/dL (0.7-1.3); POTASSIUM 5.2 mmol/L (3.5-5.1)
[2019-02-06 07:46] LABS: ALBUMIN 3.8 g/dL (3.4-5.0); PHOSPHORUS 4.8 mg/dL (2.5-4.9)
[2019-02-06 11:10] VITALS: BP 123/88
[2019-02-06 14:25] LABS: BF NUCLEATED CELLS 631; BF RBC 1096
[2019-02-06 14:43] LABS: CLARITY HAZY; COLOR STRAW; SOURCE BRONCH; TOTAL VOLUME 30 mL
--- NOTE | 2019-02-06 15:13 | NUR ---
INITIAL ASSESSMENT: JUNE reviewed chart and spoke with nursing and attending physician. Pt was admitted from [facility] due to COPD exacerbation and ESRD. Pt had bronch earlier today. JUNE met with pt at bedside. Introduced role of SW. Pt is alert/orientated x 4. Pt reports he has lived at [facility] for about a year. Pt has home O2 and uses a cane. Pt goes to outpatient dialysis at the [facility] [place] [place] [address] M-W-F at 0500. Pt has transportation to/from dialysis. Pt is hoping to discharge today and resume his regular outpatient dialysis tomorrow. JUNE explained that there are not discharge orders at this time. JUNE contacted [facility] liaison, who confirms they are able to accept pt back this evening, if he is discharged. JUNE spoke with Elle at Dialysis to notify of pt's possible discharge and return to outpatient dialysis tomorrow. Final discharge orders and summary will need to be faxed to dialysis and to [facility] when available. [facility] liaison will need to be contacted to arrange transportation back to the facility. JUNE is following to assist as needed with discharge planning. [facility]--
[2019-02-06 15:39] LABS: BF MACROPHAGE 38; BF NEUTROPHILS 58
[2019-02-06 16:12] VITALS: BP 144/105
--- NOTE | 2019-02-06 17:22 | NUR ---
WENT FOR BRONCH TODAY. GOOD APPETITE. RIGHT UPPER ARM SALINE LOCK INTACT. LEFT CHEST DIALYSIS CATH. REFUSES TELE MONITOR. FENTANYL FOR PAIN IN NECK AND BACK OF HEAD. UAL IN ROOM O2 AT 2L NASAL CANULA.
[2019-02-06 19:30] VITALS: BP 146/103
--- NOTE | 2019-02-06 22:01 | NUR ---
At 2150, patient refused a physical assessment after medication administration and cussed at nursing staff. Patient statement: "You are not the doctor. You can't do anything to fix me. This is non-negotiable." This was followed by yelling and cussing at this RN.
[2019-02-06 23:18] VITALS: BP 136/94
--- NOTE | 2019-02-07 00:47 | NUR ---
AROUND 2320, PT AWAKENED C/O SOA AND PAIN. HE REQUESTED BREATHING TX AND IV FENTANYL. PT ALLOWED RN TO TAKE HIS VITAL SIGNS. VSS AND O2 SATS STABLE ON 4L NC. HOWEVER, HE DID LOOK TO HAVE SLIGHTLY LABORED BREATHING. WHEN RN ASKED PT IF HE WOULD ALLOW HER TO LISTEN TO HIS HEART AND LUNG SOUNDS AND DO AN ASSESSMENT ON HIM, HE REFUSED. THIS RN EXPLAINED THAT PT IS ADMITTED A CCT STATUS AND SHOULD BE ASSESSED Q4H PER UNIT PROTOCOL. PT STILL REFUSED, RAISED HIS VOICE AT RN, AND SAID THERE WAS NO NEED TO ASSESS HIM. RN EXPLAINED TO PT THAT FOR SAFETY REASONS, SHE NEEDED TO AT LEAST DO AN ASSESSMENT PRIOR TO GIVEN IV NARCOTICS. PT WOULD NOT LISTEN AND CONTINUED TO ADAMANTLY REFUSE AN ASSESSMENT. RN RESPECTED PT WISHES. RN INFORMED PT THAT HE WAS NOT QUITE DUE YET FOR IV FENTANYL BUT COULD HAVE PO PAIN MEDICATION. PT STATED HE WANTED THE IV MEDS AND WOULD WAIT UNTIL THEY WERE DUE. RT GAVE PT A BREATHING TX AND PT ALLOWED RT TO LISTEN TO HIS LUNGS. CHARGE NURSE DISCUSSED WITH PT THE SAFETY REASONS FOR WHY AN RN NEEDS TO ASSESS HIM. PT STILL REFUSED. PT CONTINUES TO REFUSE RELOCATION ASSOCIATE WELL. RESTAURANT AREA MANAGER METAL BALER FOR HOSPITALIST NOTIFIED OF PT REFUSAL OF CARE BUT THAT HE CONTINUES TO REQUEST IV PAIN MEDICATIONS. INTERN GAVE PATIENT IV PAIN MEDICATION. PT RESTING IN BED AT THIS TIME. WILL CONTINUE TO MONITOR FURTHER.
--- NOTE | 2019-02-07 04:26 | NUR ---
AROUND 0420 NURSE SPOKE TO PATIENT REGARDING HIS REQUEST FOR PAIN MEDS. PATIENT IS ADAMANT THAT HE IS UNWILLING TO BE ASSESSED OR HAVE VITAL SIGNS TAKEN BY STAFF BECAUSE "THAT'S NOT IN THE ORDER" AND THAT STAFF IS "BLACKMAILING" HIM OVER ACCESS TO HIS IV FENTANYL. NURSE ATTEMPTED TO EDUCATE PATIENT THAT IT IS NOT BEST PRACTICE TO GIVE MEDICATIONS WITHOUT CHECKING FOR POSSIBLE HARM AND EFFECTIVENESS OF MEDICATION DELIVERED. PATIENT AT FIRST RELENTED AND SAID THAT HE WOULD ALLOW FOR BRIEF ASSESSMENT AND VITAL SIGNS, WHEN STAFF RETAIL LOSS PREVENTION OFFICER WENT INTO THE ROOM PATIENT TO OBTAIN VITAL SIGNS PATIENT REFUSED AND REQUESTED TO SPEAK TO CHARGE NURSE. PATIENT OFFERED PO PAIN MEDS IN ACCORDANCE WITH DOCTORS ORDERS.
[2019-02-07 04:45] VITALS: BP 146/117
[2019-02-07 05:25] LABS: HEMOGLOBIN 12.3 gm/dL (14.0-18.0); MCH 29.7 pg (26.0-34.0); MCHC 31.5 g/dL (28.0-37.0); RBC 4.15 mil/uL (4.50-6.00); RDW 17.9 % (10.5-14.5); WBC 10.8 thou/uL (4.0-11.0)
--- NOTE | 2019-02-07 05:30 | NUR ---
The patient has been uncooperative and hostile towards nursing staff. The patient has wanted his IV fentanyl without any sort of assessment or vitals taken. The laborer powerhouse was called at 0433 and arrived about 10 minutes later to speak with the patient. Security also spoke with the patient at 0510 because of patient request. After speaking with the laborer powerhouse, the patient agreed for an assessment/ vitals to be taken this AM. The patient was wheezing in all lung cerna, and on 4L NC. The patient stated that he has been coughing up small amounts of mucous but that it has improved. The patient is partially improving toward plan of care goals at this time.
[2019-02-07 05:44] LABS: ALBUMIN 3.5 g/dL (3.4-5.0); CREATININE 6.7 mg/dL (0.7-1.3); PHOSPHORUS 4.8 mg/dL (2.5-4.9); POTASSIUM 5.3 mmol/L (3.5-5.1)
[2019-02-07 07:55] VITALS: BP 158/119
--- NOTE | 2019-02-07 11:04 | HC ---
[facility] [place] [address] CONSULTATION Name: PATRICIA CARPIO Room #: 359-P [facility] IN M.R.#: [id number] Admission: 02/04/19 ������������������ Attend Phys: Ford Guaman MD Discharge: ������������������ Date of : 63 Report #: [id number] THIS REPORT FOR: //name// CC: Ford Castellanos DATE OF SERVICE: 02/05/2019 NEPHROLOGY CONSULTATION REASON FOR CONSULTATION: End-stage renal disease. HISTORY OF PRESENT ILLNESS: This 53-year-old gentleman, well known to our service, has chronic kidney disease, dial[facility] at [facility]. He has had progressive issues lately with shortness of air, has had multiple extra dialysis treatments, presents with severe breathlessness, a relatively normal chest x-ray, was admitted and is due for dialysis today. He also had hyperkalemia with today's potassium pending. PAST MEDICAL HISTORY: He has HIV, long-standing. Has been on antiretrovirals, has very severe cardiomyopathy with ejection fraction reportedly at 20% along with COPD, hypertension, previous abdominal trauma with laceration of his spleen and intestines and had surgery there, remote history of STDs as well as the HIV. FAMILY HISTORY: Positive for coronary and heart disease. No renal disease. SOCIAL HISTORY: He was a heavy smoker, but he quit. Denies alcohol or drugs. REVIEW OF SYSTEMS: GENERAL: Feeling reasonably well. EYES: Vision is okay. ENT: Hearing okay, swallows okay. ENDOCRINE: No diabetes. RESPIRATORY: Very severe shortness of air even after dialysis. CARDIAC: No chest pain. He does get occasional swelling in his legs. GASTROINTESTINAL: Appetite is fair. No nausea, vomiting, diarrhea or bloody stools. GENITOURINARY: Continues to make some urine, no dysuria. NEUROLOGIC: No seizure, syncope, stroke or peripheral neuropathy. PHYSICAL EXAMINATION: GENERAL: This is a reasonably well-appearing gentleman. He is coughing up some discolored sputum. SKIN: Unremarkable. [facility] [address] [place] [address] CONSULTATION Name: PATRICIA CARPIO Room #: 359-[facility] IN M.R.#: [id number] Admission: 02/04/19 ������������������ Attend Phys: Ford Guaman MD Discharge: ������������������ Date of : 63 Report #: [id number] SKELETAL: Well developed, well nourished. HEENT: Extraocular movements are full. Vision is intact. Hearing is intact. No scleral icterus. Mucous membranes moist. Tongue and buccal mucosa benign. NECK: Supple without JVD. CHEST: Shows diffuse rhonchi. Coarse breath sounds. HEART: Regular. ABDOMEN: Soft and nontender. EXTREMITIES: Show no peripheral edema. Left IJ dialysis catheter in place. NEUROLOGIC: Intact. LABORATORY DATA: The potassium was 5.5 overnight. Today's labs pending. Creatinine is 5. ASSESSMENT: 1. End-stage renal disease. He is in need of routine dialysis. We will do some ultrafiltration even though his chest x-ray did not show excessive fluid. 2. Shortness of air. I believe he has bronchitis or bronchopneumonia. We will have Pulmonary consultation to assist in treatment of his ongoing intermittent breathlessness. 3. Human immunodeficiency virus, on antiretrovirals. Opportunistic infection must also be considered, although chest x-ray did not show infiltrates. 4. Cardiomyopathy with decreased left ventricular ejection fraction. 5. History of diabetes mellitus. ��������������������������������������������� <ELECTRONICALLY SIGNED> ���������������������������������������� By: Aly Conte MD ��������������������������������������������� 02/07/19 1104 0941 0242 Aly Conte MD /nt
--- NOTE | 2019-02-07 11:34 | HC ---
[facility] [place] [address] CONSULTATION Name: PATRICIA CARPIO Room #: 359-P [facility] IN M.R.#: [id number] Admission: 02/04/19 ������������������ Attend Phys: Ford Guaman MD Discharge: ������������������ Date of : 63 Report #: [id number] THIS REPORT FOR: //name// CC: Ford Castellanos DATE OF SERVICE: 02/06/2019 INFECTIOUS DISEASES CONSULTATION REASON FOR CONSULTATION: Evaluate bilateral pulmonary infiltrates and AIDS. HISTORY OF PRESENT ILLNESS: The patient IS a 53-year-old with underlying AIDS along with cardiomyopathy and end-stage renal disease. He has had frequent hospitalizations for congestive heart failure and poor compliance with fluid management. He has had progressive shortness of breath. He has had intermittent cough with minimal sputum production. He has had a thick sputum with poor clearance of secretions. No hemoptysis. Denies any chest pain. He has undergone dialysis. Discussed with Pulmonary Medicine today. Underwent bronchoscopy. Found a fair amount of thick white secretions in the mid bronchial tree. Samples were sent for analysis and culture. Post-procedure has been stable with no fever, chills or sweats. On 8 liters of oxygen per nasal cannula. He has been on 3-4 liters at home prior to this. He has underlying cardiomyopathy with an EF of 20%. He has an AICD in place. His HIV has been on 4-drug regimen. CD4 count has been over 100, but still not total control of his HIV RNA. He has been followed by Dr. Godoy at [facility]. He has had no travel. Previous workup has failed to identify any pathogens in 2017. His TB screen was negative. REVIEW OF SYSTEMS: Ten page review was negative other than what is described above. ALLERGIES: AZITHROMYCIN, ADRIAN INHIBITORS, PENTAMIDINE. MEDICATIONS: As noted on his MAR including his antiretroviral therapy, corticosteroids. PAST MEDICAL AND SURGICAL HISTORY: Coronary artery disease, cardiomyopathy, hypertension, COPD with emphysema, end-stage renal disease, peripheral vascular disease, AIDS, AICD placement. FAMILY HISTORY: Noncontributory. [facility] [address] [place] [address] CONSULTATION Name: PATRICIA CARPIO Room #: 359-P [facility] IN M.R.#: [id number] Admission: 02/04/19 ������������������ Attend Phys: Ford Guaman MD Discharge: ������������������ Date of : 63 Report #: [id number] SOCIAL HISTORY: Past smoker, no significant alcohol intake. PHYSICAL EXAMINATION: VITAL SIGNS: He is afebrile and hemodynamically stable. GENERAL: He is alert and cooperative and pleasant, in no acute distress, on 8 liters of oxygen per nasal cannula. Had mild valdivia facies. HEENT: Eyes without scleral edema. Mouth without mucositis, he had poor dentition. NECK: Supple, with no thyromegaly or mass. LUNGS: Rhonchi heard bilaterally with a few basilar crackles. CHEST: Left chest tunneled dialysis catheter was nontender with no drainage. HEART: Regular, without murmur, gallop or rub. ABDOMEN: Soft and nontender with no hepatosplenomegaly or mass appreciated. EXTREMITIES: No peripheral edema. NEUROLOGIC: Cranial nerves intact. Strength in his upper and lower extremities was normal. Mood normal. Mental status normal. LABORATORY STUDIES: ____ 5.1; hemoglobin 12.8; platelet count 160,000; WBC 7.2. BNP 48,000. CT scan of the chest showed scattered interstitial and nodular infiltrates with tree-in-bud changes, cardiomegaly and emphysematous changes, mostly in the upper lobes. IMPRESSION: 1. Acquired immune deficiency syndrome with bilateral pulmonary infiltrates, some of which likely is related to pulmonary edema. Still has some tree-in-bud and inflammatory changes. Consideration would include opportunistic infection. 2. End-stage renal disease. 3. Cardiomyopathy. RECOMMENDATION: We will obtain microbiology studies from his bronchoscopy. Continue antibiotic coverage with Levaquin, pending the studies. Continue full support with cardiac, renal, COPD and infectious treatment. ��������������������������������������������� <ELECTRONICALLY SIGNED> ���������������������������������������� By: Varghese Marc MD ��������������������������������������������� 02/07/19 1134 1714 0615 Varghese Marc MD /nt
[2019-02-07 13:42] VITALS: BP 135/89
--- NOTE | 2019-02-07 14:37 | NUR ---
PT ALERT AND ORIENTED TIMES FOUR. VSS, 97%4L. PT CONTINUES TO REFUSED TO BE ON TELEMERTY MONITOR. PT C/O BACK AND HEAD PAIN, PRN PAIN MEDICATION GIVEN WITH SOME RELIEF. PT HAD DIALYSIS TODAY WITH 2L OFF. PT TOLERATES MEDS AND MEALS. PT SLOWLY PROGRESSING TOWRADS POC GOALS.
--- NOTE | 2019-02-07 15:13 | NUR ---
SW reviewed chart and spoke with nursing and attending physician. Pt is progressing towards goals for discharge back to [facility]. Discharge is anticipated for tomorrow. Pt will resume outpatient dialysis at [facility]. JUNE updated [facility] liaison. JUNE is following to assist as needed with discharge planning.
[2019-02-07 17:20] VITALS: BP 150/110
[2019-02-07 19:45] VITALS: BP 131/89
--- NOTE | 2019-02-07 21:47 | NUR ---
PATIENT IS ALERT AND ORIENTED. PATIENT IS UP AD ILYA. PATIENT IS ON 4L NC. PATIENT MANUVERS OXYGEN TANK APPROPIATELY. PATIENT REFUSES TELE. PATIENT DID ALLOW ASSESSMENT AT SHIFT CHANGE AND VITALS. NO OTHER ASSESMENTMENTS OR VITALS THROUGH THE NIGHT. WILL ASK AGAIN. PATIENTS PAIN IS CONTORLLED WITH IV PAIN MEDS PO PAIN MEDS DO NOT HELP PER PATIENT. GAVE PATIENT TO NEW RN AT 2200. WCM.
--- NOTE | 2019-02-08 00:03 | NUR ---
ASSUMED PT CARE 2200. PT ALERT AND ORIENTED. RECEIVED REPORT FROM NURSE. REASSESSMENT COMPLETE, AGREE WITH NURSES ASSESSMENT. PT ON 4L OXYGEN VIA NC, WHEEZING HEARD. PT CALM AND COOPERATIVE. PT REFUSING 0000 REASSESSMENT. PT REFUSING TELE MONITORING. IV DRESSING C/D/I, NO SIGNS OF INFILTRATION-FLUSHES WELL. L DIALYSIS CHEST CATH, DRESSING C/D/I. PT DOES NOT WANT TO BE DISTURBED AFTER MIDNIGHT. PT CALL LIGHT AND PERSONAL BELONGINGS WITHIN REACH. WILL CONTINUE POC UNTIL EOS.
[2019-02-08 06:33] VITALS: BP 150/105
[2019-02-08 07:14] LABS: ADENOVIRUS Negative (Negative); INFLUENZA A Negative (Negative); INFLUENZA B Negative (Negative); METAPNEUMOVIRUS Negative (Negative); PARAINFLUENZA 1 Negative (Negative); PARAINFLUENZA 2 Negative (Negative); PARAINFLUENZA 3 Negative (Negative); RHINOVIRUS Negative (Negative); RSV A Negative (Negative); RSV B Negative (Negative)
[2019-02-08 08:17] VITALS: BP 150/105
[2019-02-08] MEDS ORDERED: LEVAQUIN 500 M500 M1 PO (13:57)
[2019-02-08] MEDS ORDERED: NORCO 5-325 TA1 EACH PO (14:00)
[2019-02-08] MEDS ORDERED: COMBIVENT INH (14:04)
--- NOTE | 2019-02-08 14:58 | NUR ---
DISCHARGE ORDERS RECEIVED. PATIENT DISCHARGING BACK TO [facility] UNIT. DISCHARGE ORDERS AND SUMMARY FAXED TO [facility], VERIFIED ORDERS RECEIVED. FAMILY TO TRANSPORT PATIENT BACK TO FACILITY. DISCHARGE ORDERS, DISCHARGE SUMMARY, H&P, DIALYSIS CLINICAL INFORMATION AND FACESHEET FAXED TO PATIENTS DIALYSIS CLINIC, [facility], VERIFIED RECEIVED. UNIT CM/SW AWARE.
--- NOTE | 2019-02-08 15:05 | PATH ---
[facility] [address] [place] [address] PATHOLOGY RPT PROCEDURE Name: PATRICIA CARPIO Room #: 359-P DIS IN M.R.#: [id number] ������������������ Admission: 02/04/19 ������������������ Date of : 63 Discharge: 02/08/19 Report #: [id number] Path Case #: [id number] Note L[facility] Accession Number: [id number] TESTS RESULT FLAG UNITS REF RANGE LAB Clinician Provided Cytology Information No. of containers..01 Other (Miscellaneous) Source: BAL RML DIAGNOSIS: BAL RML NEGATIVE FOR MALIGNANT CELLS. SILVER METHENAMINE STAINED SMEARS ARE NEGATIVE FOR PNEUMOCYSTIS JIROVECI. SILVER METHENAMINE STAINED SMEAR POSITIVE FOR NUMEROUS FUNGAL HYPHAL ORGANISMS. RARE BRONCHIAL EPITHELIAL CELL PRESENT; SPECIMEN PREDOMINANTLY COMPRISED OF SQUAMOUS EPITHELIAL CELLS, FAVOR ORAL CONTAMINATION. Pathologist ICD10: 02 J44.9 Signed out by: Felicitas Rai MD, Pathologist NPI- [id number] Performed by: Warner Nelson, Oven Press Tender ([facility]) Gross description: 01 20ML, WHITE, CLOUDY /LCS FLAG LEGEND: L-Low Normal,H-High Normal,LL-Alert Low,HH-Alert High <-Panic Low,>-Panic High,A-Abnormal,AA-Critical Abnormal Performed at: 01 [facility] [address] [place] [address] Sukhdeep Andrews MD, [address] [address] Zaina Rai MD, Specimen Comment: A courtesy copy of this report has been sent to Specimen Comment: [phone], . Specimen Comment: Report sent to / DR OSCAR Specimen Comment: A duplicate report has been generated due to demographic updates. Performed at: [address] [address] PATHOLOGY RPT PROCEDURE Name: PATRICIA CARPIO Room #: 359-P DIS IN M.R.#: [id number] ������������������ Admission: 02/04/19 ������������������ Date of : 63 Discharge: 02/08/19 Report #: [id number] Path Case #: [id number] [facility] [address], [place], [place] [id number] MD Sukhdeep Andrews MD Phone: [phone]
--- NOTE | 2019-02-08 15:21 | NUR ---
DISCHARGE NOTE: SW reviewed chart and spoke with nursing and attending physician. Pt is medically stable for discharge back to [facility] today. master planner faxed discharge orders/summary to [facility] and [facility]. [facility] arranged transportation for 1800. Pt was discharged already. Pt's family provided transportation. No additional SW needs identified at this time, but is available to assist should needs arise.
[2019-02-08 16:08] LABS: HISTOPLASMA MYCELIAL-ID Negative (Negative)
[2019-02-08 20:09] LABS: HISTOPLASMA MYCELIAL-CF Negative (Neg:<1:2)
--- NOTE | 2019-02-08 20:22 | NUR ---
PT ALERT AND ORIENTED TIMES FOUR. BP ELEVATED THIS MORNING SCHEDULED BP MEDS GIVEN, OTHER VSS. PT CONTINUES TO REFUSE TELE MONITOR. PT C/O PAIN PRN MEDIATIONS GIVEN WITH GOOD RELEIF. PT TOLERATES MEDS AND MEALS. PT UP AB ILYA WITH STEADY GAIT. PLANS TO DISCHARGE TODAY. WILL CONTINUE TO MONITOR.
--- NOTE | 2019-02-12 12:06 | PATH ---
[facility] [address] [place] [address] PATHOLOGY RPT PROCEDURE Name: PATRICIA CARPIO Room #: 359-P DIS IN M.R.#: [id number] ������������������ Admission: 02/04/19 ������������������ Date of : 63 Discharge: 02/08/19 Report #: [id number] Path Case #: [id number] Note LCA Accession Number: [id number] TESTS RESULT FLAG UNITS REF RANGE LAB Clinician Provided Cytology Information No. of containers..01 Other (Miscellaneous) Source: MICRO BRUSH TIP DIAGNOSIS: 02 MICRO BRUSH TIP NEGATIVE FOR MALIGNANT CELLS. PULMONARY MACROPHAGES PRESENT, INDICATIVE OF LOWER RESPIRATORY TRACT SAMPLING. SCANT CELLULARITY. Pathologist ICD10: 02 J44.9 Signed out by: 02 Zaina Rai MD, Pathologist NPI- [id number] Performed by: 01 Kasia Nelson Cooler Tender ([facility]) FLAG LEGEND: L-Low Normal,H-High Normal,LL-Alert Low,HH-Alert High <-Panic Low,>-Panic High,A-Abnormal,AA-Critical Abnormal Performed at: [address] [place] [address] Sukhdeep Andrews MD, [address] [address] Zaina Rai MD, Specimen Comment: A courtesy copy of this report has been sent to Specimen Comment: [phone], . Specimen Comment: Report sent to / DR OSCAR Specimen Comment: A duplicate report has been generated due to demographic updates. Performed at: [address], [place], [place] [id number] MD Sukhdeep Andrews MD Phone: [phone]
== END 2019-02-08 14:50 | disposition home or self-care (01) | DRG 974 ==
LOC: ER 18:13 → EROBS 20:36 → 3W 20:36 → EDTRNSPTSTS 02-08 14:17 → ENTRNSPT 02-08 14:17 → 3W 02-08 14:50
PROVIDERS: Anesthesiology; Emergency Medicine; Internal Medicine Nephrology; Nurse Practitioner Family; Pediatrics; Specialist; ADMIT Hospitalist
PROC: 5A1D70Z Performance of Urinary Filtration, Intermittent, Less than 6 Hours Per Day (ICD-10-PCS; principal; 2019-02-05)
PROC: 0B9D8ZX Drainage of Right Middle Lung Lobe, Via Natural or Artificial Opening Endoscopic, Diagnostic (ICD-10-PCS; 2019-02-06)
PROC: 0BD58ZX Extraction of Right Middle Lobe Bronchus, Via Natural or Artificial Opening Endoscopic, Diagnostic (ICD-10-PCS; 2019-02-06)
PROC: 5A1D70Z Performance of Urinary Filtration, Intermittent, Less than 6 Hours Per Day (ICD-10-PCS; 2019-02-07)
DX: B20 Human immunodeficiency virus [HIV] disease (principal); J18.9 Pneumonia, unspecified organism; I50.43 Acute on chronic combined systolic (congestive) and diastolic (congestive) heart failure; J96.22 Acute and chronic respiratory failure with hypercapnia; N18.6 End stage renal disease; J96.21 Acute and chronic respiratory failure with hypoxia; I13.2 Hypertensive heart and chronic kidney disease with heart failure and with stage 5 chronic kidney disease, or end stage renal disease; J44.1 Chronic obstructive pulmonary disease with (acute) exacerbation; I42.9 Cardiomyopathy, unspecified; J44.0 Chronic obstructive pulmonary disease with (acute) lower respiratory infection; I73.9 Peripheral vascular disease, unspecified; G89.4 Chronic pain syndrome; J20.9 Acute bronchitis, unspecified; B99.8 Other infectious disease; M54.9 Dorsalgia, unspecified; M19.90 Unspecified osteoarthritis, unspecified site; Z88.1 Allergy status to other antibiotic agents; Z88.8 Allergy status to other drugs, medicaments and biological substances; Z87.891 Personal history of nicotine dependence; Z82.49 Family history of ischemic heart disease and other diseases of the circulatory system; Z91.14 Patient's other noncompliance with medication regimen
CPT/HCPCS: 10879; 32100; 62110; 62900; 70005

== ENCOUNTER 2019-03-15 19:12 | Emergency (ER) | payer OTHER ==
[~2019-03-15] VITALS: Ht 182.9 cm; Wt 74.8 kg
[~2019-03-15 19:12] MED LIST changes: +LEVAQUIN 500 M500 M1 PO
[2019-03-15 20:26] LABS: HEMATOCRIT 30.6 % (42.0-52.0); HEMOGLOBIN 10.1 gm/dL (14.0-18.0)
[2019-03-15 20:28] LABS: ABSOLUTE NEUTROPHILS 3.7 thou/uL (1.4-8.2); BASOPHILS 0.8 % (0.0-2.0); EOSINOPHILS 1.3 % (0.0-3.0); LYMPHOCYTES 29.2 % (24.0-44.0); MCH 30.6 pg (26.0-34.0); MCHC 33.1 g/dL (28.0-37.0); MCV 92.4 fL (80.0-100.0); MONOCYTES 10.1 % (1.0-8.0); PLATELET COUNT 93 thou/uL (150-400); POLYS 58.6 % (36.0-66.0); RBC 3.31 mil/uL (4.50-6.00); RDW 19.9 % (10.5-14.5); WBC 7.8 thou/uL (4.0-11.0)
[2019-03-15 20:39] LABS: APTT 23.9 Seconds (24.5-32.8); INR 1.1; PROTIME 11.5 Seconds (9.3-11.4)
[2019-03-15] MEDS ORDERED: PREDNISONE 20 M20 MG PO (21:51)
[2019-03-15] MEDS ORDERED: LEVAQUIN 500 M500 M1 PO (21:51)
[2019-03-15 21:53] LABS: CALCIUM 7.5 mg/dL (8.5-10.1); CREATININE 6.3 mg/dL (0.7-1.3)
[2019-03-15 21:54] LABS: POTASSIUM 5.2 mmol/L (3.5-5.1)
[2019-03-15 22:00] LABS: ALBUMIN 3.4 g/dL (3.4-5.0); MAGNESIUM 2.1 mg/dL (1.8-2.4); TOTAL BILIRUBIN 0.2 mg/dL (<0.1-1.0); TOTAL PROTEIN 7.4 g/dL (6.4-8.2)
[2019-03-15 22:15] VITALS: BP 144/108
--- NOTE | 2019-03-16 12:11 | EKG ---
[facility] [address] [place] [address] ELECTROCARDIOGRAM REPORT Name: PATRICIA CARPIO Room #: [facility] Vikas#: [id number] ������������������ Admission: 03/15/19 ������������������ Attend Phys: Discharge: 03/15/19 ������������������ Date of : 63 Report #: [id number] ����������������������������������������������������������������� [id number] THIS REPORT FOR: //name// [facility] ED Test Date: 2019-03-15 Test Time: 19:15:37 Pat Name: PATRICIA CARPIO Department: Room: Gender: M Senior Support Analyst: ALEX : 1965 Requested By: Varghese Trujillo Order Number: [id number] MD: Benny Heller Measurements Intervals [place] Rate: 91 P: 37 NJ: 228 QRS: -55 QRSD: 105 T: 116 QT: 412 QTc: 508 Interpretive Statements Sinus rhythm Prolonged NJ interval RSR' in V1 or V2, probably normal variant LVH with secondary repolarization abnormality Inferior infarct, old Prolonged QT interval Compared to ECG 02/01/2019 22:43:01 Inferior Q waves are more pronounced Electronically Signed On 03-16-2019 12:11:08 CDT by Benny Heller [email or web address] ��������������������������������������������� <ELECTRONICALLY SIGNED> ���������������������������������������� By: Benny Heller MD, [facility] ��������������������������������������������� 03/16/19 [phone] Benny Heller MD, [facility] /EPI
== END 2019-03-15 22:16 | disposition home or self-care (01) ==
LOC: ER 19:12
PROVIDERS: Emergency Medicine
DX: J44.1 Chronic obstructive pulmonary disease with (acute) exacerbation (principal); I13.2 Hypertensive heart and chronic kidney disease with heart failure and with stage 5 chronic kidney disease, or end stage renal disease; N18.6 End stage renal disease; I50.32 Chronic diastolic (congestive) heart failure; G89.4 Chronic pain syndrome; R10.84 Generalized abdominal pain; M54.9 Dorsalgia, unspecified; Z99.2 Dependence on renal dialysis; Z88.1 Allergy status to other antibiotic agents; Z88.8 Allergy status to other drugs, medicaments and biological substances; Z87.891 Personal history of nicotine dependence

== ENCOUNTER 2019-03-17 14:04 | Emergency (ER) | payer OTHER ==
[~2019-03-17] VITALS: Ht 182.9 cm; Wt 77.1 kg
[~2019-03-17 14:04] MED LIST changes: +PREDNISONE 20 M20 MG PO
[2019-03-17 14:56] LABS: ABSOLUTE NEUTROPHILS 4.9 thou/uL (1.4-8.2); BASOPHILS 0.6 % (0.0-2.0); HEMATOCRIT 34.9 % (42.0-52.0); LYMPHOCYTES 17.3 % (24.0-44.0); MCH 29.5 pg (26.0-34.0); MCHC 31.6 g/dL (28.0-37.0); MCV 93.4 fL (80.0-100.0); MONOCYTES 6.7 % (1.0-8.0); PLATELET COUNT 113 thou/uL (150-400); POLYS 75.4 % (36.0-66.0); RBC 3.74 mil/uL (4.50-6.00); RDW 20.2 % (10.5-14.5); WBC 6.6 thou/uL (4.0-11.0)
[2019-03-17 15:06] LABS: ANION GAP 9 mmol/L (7-16); BUN 39 mg/dL (7-18); CALCIUM 8.2 mg/dL (8.5-10.1); CHLORIDE 98 mmol/L (98-107); CO2 26 mmol/L (21-32); CREATININE 6.7 mg/dL (0.7-1.3); GLUCOSE 101 mg/dL (74-106); POTASSIUM 5.2 mmol/L (3.5-5.1); SODIUM 133 mmol/L (136-145)
[2019-03-17 15:14] LABS: TROPONIN-I <0.06 ng/mL (<0.06)
[2019-03-17 16:05] VITALS: BP 142/97
--- NOTE | 2019-03-18 10:27 | EKG ---
[facility] [address] [place] [address] ELECTROCARDIOGRAM REPORT Name: PATRICIA CARPIO Room #: [facility] GILMAR Bean#: [id number] ������������������ Admission: 03/17/19 ������������������ Attend Phys: Discharge: 03/17/19 ������������������ Date of : 63 Report #: [id number] ����������������������������������������������������������������� [id number] THIS REPORT FOR: //name// [facility] ED Test Date: 2019-03-17 Test Time: 14:38:32 Pat Name: PATRICIA CARPIO Department: Room: Gender: M Armature Bander: WG : 1965 Requested By: Parish Crawford Order Number: [id number] MD: Benny Heller Measurements Intervals [place] Rate: 99 P: 37 ND: 206 QRS: -52 QRSD: 96 T: 137 QT: 383 QTc: 492 Interpretive Statements Sinus rhythm Borderline prolonged ND interval Probable left atrial enlargement LVH with secondary repolarization abnormality Inferior infarct, old Compared to ECG 03/15/2019 19:15:37 Prolonged QT interval no longer present Electronically Signed On 03-18-2019 10:26:47 CDT by Benny Heller [email or web address] ��������������������������������������������� <ELECTRONICALLY SIGNED> ���������������������������������������� By: Benny Heller MD, [facility] ��������������������������������������������� 03/18/19 1026 1438 1438 Benny Heller MD, [facility] /EPI
== END 2019-03-17 16:05 | disposition home or self-care (01) ==
LOC: ER 14:04
PROVIDERS: Nurse Practitioner
DX: R06.00 Dyspnea, unspecified (principal); J43.9 Emphysema, unspecified; G89.29 Other chronic pain; I42.8 Other cardiomyopathies; I13.0 Hypertensive heart and chronic kidney disease with heart failure and stage 1 through stage 4 chronic kidney disease, or unspecified chronic kidney disease; N18.4 Chronic kidney disease, stage 4 (severe); I50.9 Heart failure, unspecified; Z99.2 Dependence on renal dialysis; Z21 Asymptomatic human immunodeficiency virus [HIV] infection status; Z87.891 Personal history of nicotine dependence; Z88.1 Allergy status to other antibiotic agents; Z88.8 Allergy status to other drugs, medicaments and biological substances

== ENCOUNTER 2019-04-05 19:16 | Inpatient (IN) | payer OTHER ==
[~2019-04-05] VITALS: Ht 182.9 cm; Wt 84.4 kg
--- NOTE | ~2019-04-05 | HC ---
[facility] [address] [address] CONSULTATION Name: PATRICIA CARPIO Room #: 201-P [facility] IN M.R.#: [id number] Admission: 04/06/19 ������������������ Attend Phys: Brian Woody Discharge: 04/06/19 ������������������ Date of : 63 Report #: [id number] THIS REPORT FOR: //name// CC: Brian Richardsonh Luischi [facility] DATE OF SERVICE: 04/06/2019 REASON FOR CONSULTATION: End-stage renal disease, in need of dialysis. HISTORY OF PRESENT ILLNESS: This 53-year-old gentleman well known to our service from frequent admissions at this hospital is a chronic dialysis patient at the [facility] in the vicinity of [facility]. He has had progressive and chronic shortness of air and developed severe abdominal pain, came to the Emergency Room, was treated with narcotics is feeling better, still somewhat shortwinded and in need of his usual dialysis and he also had some hyperkalemia. PAST MEDICAL HISTORY: HIV longstanding, on retroviral, very severe cardiomyopathy with decreased ejection fraction at 20%, severe COPD, severe hypertension, previous abdominal trauma with spleen laceration, abdominal surgery, remote history of STDs and the HIV. FAMILY HISTORY: Positive for heart disease. No renal disease. SOCIAL HISTORY: He was a heavy smoker, he says he quit. Denies recent alcohol or drug use. REVIEW OF SYSTEMS: GENERAL: He has been feeling reasonably well this week with the exception of his shortness of air and now the abdominal pain. EYES: Vision reasonably good. ENT: Hearing okay. No mouth sores. ENDOCRINE: No diabetes. RESPIRATORY: Easily shortwinded. CARDIAC: No chest pain or palpitations. GASTROINTESTINAL: Appetite fair. Denies nausea, vomiting, diarrhea. No bloody stools. GENITOURINARY: Making some urine. NEUROLOGIC: No seizure, syncope, stroke or history of neuropathy. PHYSICAL EXAMINATION: GENERAL: Somewhat ill-appearing gentleman. He has got a wet sounding cough. SKIN: Unremarkable. SKELETAL: Well developed, well nourished. [facility] [address] [place] [address] CONSULTATION Name: PATRICIA CARPIO Room #: 201-P [facility] IN M.R.#: [id number] Admission: 04/06/19 ������������������ Attend Phys: Brian Woody Discharge: 04/06/19 ������������������ Date of : 63 Report #: [id number] HEENT: Extraocular movements are full. Vision intact. Hearing intact. No scleral icterus. Mucous membranes moist. NECK: Supple, without JVD or lymphadenopathy. CHEST: Shows diffuse rhonchi with coarse breath sounds. HEART: Regular. ABDOMEN: Soft and nontender. EXTREMITIES: Show no peripheral edema. Left IJ catheter in place. NEUROLOGIC: Intact. LABORATORY DATA: Hemoglobin is 10.8, white count 6.8, platelets 148. Sodium 135, potassium 5.7, chloride 100, bicarbonate 22, BUN 68, creatinine 6.5. ASSESSMENT AND PLAN: 1. End-stage renal disease in need of dialysis. We will dialyze him with ultrafiltration. 2. Difficult hypertension. 3. Severe cardiomyopathy. 4. Human immunodeficiency virus. ��������������������������������������������� ���������������������������������������� By: ��������������������������������������������� 1152 0449 Aly Conte MD /nt
[2019-04-05 20:14] LABS: URINE BILIRUBIN NEGATIVE (Negative); URINE BLOOD NEGATIVE (Negative); URINE CLARITY CLEAR; URINE COLOR YELLOW; URINE GLUCOSE-RANDOM* NEGATIVE (Negative); URINE KETONES NEGATIVE (Negative); URINE LEUKOCYTES-REFLEX NEGATIVE (Negative); URINE NITRITE-REFLEX NEGATIVE (Negative); URINE PROTEIN (DIPSTICK) 3+ (Negative); URINE SPECIFIC GRAVITY 1.025 (1.005-1.035); URINE UROBILINOGEN 0.2 E.U./dl (0.2-1.0)
[2019-04-05 20:23] LABS: BACTERIA-REFLEX 1-9 Few /HPF (None Seen); CASTS None Seen /LPF (None Seen); CRYSTALS None Seen /LPF (None Seen); SQUAMOUS 0-3 Few /LPF (0-3); URINE RBC None Seen /HPF (0-2); URINE WBC-REFLEX 0-5 Rare /HPF (0-5)
[2019-04-05 20:48] LABS: HEMATOCRIT 32.6 % (42.0-52.0); HEMOGLOBIN 10.8 gm/dL (14.0-18.0); MCH 31.6 pg (26.0-34.0); MCV 95.6 fL (80.0-100.0); PLATELET COUNT 148 thou/uL (150-400); RBC 3.42 mil/uL (4.50-6.00); RDW 22.2 % (10.5-14.5); WBC 6.8 thou/uL (4.0-11.0)
[2019-04-05 20:57] LABS: CALCIUM 7.3 mg/dL (8.5-10.1); CREATININE 6.5 mg/dL (0.7-1.3); POTASSIUM 5.7 mmol/L (3.5-5.1)
[2019-04-05 21:03] LABS: ALBUMIN 3.6 g/dL (3.4-5.0); TOTAL BILIRUBIN 0.6 mg/dL (<0.1-1.0); TOTAL PROTEIN 7.5 g/dL (6.4-8.2)
[2019-04-05 21:29] LABS: ABSOLUTE NEUTROPHILS 5.2 thou/uL (1.4-8.2)
[2019-04-05 21:30] LABS: ANISOCYTOSIS 3+; PLATELET ESTIMATE DECREASED; POLYCHROMASIA 1+
[2019-04-06] MEDS ORDERED: COMBIVENT INH (02:58)
[2019-04-06] MEDS ORDERED: NORVIR100 M1 PO (02:59)
[2019-04-06] MEDS ORDERED: PREZISTA800 MG PO (02:59)
[2019-04-06] MEDS ORDERED: TIVICAY50 MG PO (03:00)
[2019-04-06] MEDS ORDERED: SENSIPAR 30 MG30 M1 PO (03:00)
[2019-04-06] MEDS ORDERED: COLACE100 MG PO (03:01)
[2019-04-06] MEDS ORDERED: VITAMIN D2000 UNIT PO (03:01)
[2019-04-06] MEDS ORDERED: G TUSSIN AC LI473 ML PO (03:02)
[2019-04-06] MEDS ORDERED: ONDANSETRON HCL4 M3 PO (03:03)
[2019-04-06] MEDS ORDERED: [UNRECOGNIZED DRUG - OTHER] RECTAL (03:03)
[2019-04-06] MEDS ORDERED: COMPAZINE10 MG PO (03:04)
[2019-04-06] MEDS ORDERED: PROMETHAZINE-D118 ML PO (03:06)
[2019-04-06] MEDS ORDERED: ALDARA1 EACH TOP (03:09)
[2019-04-06] MEDS ORDERED: NORCO 10-325 T1 EACH PO (03:10)
--- NOTE | 2019-04-06 10:11 | NUR ---
MEDS REQUESTED FROM PHARMACY
[2019-04-06 10:49] VITALS: BP 162/124
--- NOTE | 2019-04-06 11:20 | NUR ---
NEPHROLOGY PAGED TO REQUEST ORDER FOR DIALYSIS TODAY
[2019-04-06 11:37] VITALS: BP 132/120
[2019-04-06 11:40] VITALS: BP 179/127
[2019-04-06 12:32] LABS: CREATININE 6.7 mg/dL (0.7-1.3); POTASSIUM 4.7 mmol/L (3.5-5.1)
--- NOTE | 2019-04-06 12:37 | NUR ---
PT ARRIVED TO THE UNIT AT APPROX 1150 BY ER STAFF WITH ALL BELONGINGS. PT ALERT AND ORIENTED, PT SEEMS VERY AGITATED, PT IS DISRESPECTFUL, COOPERATES, BUT NOT ALL THE TIME. PT SEEN BY CARDIOLOGY AND NEPHROLOGY. PT TO BE DIALYZED TODAY. PT REFUSED TO SIGN FALL RISK CONSENT, FREQUENT CHECKS ON PT PERFORMED. O2 SATS WNL ON 3L O2, WEARS O2 AT HOME. TELE PUT ON, ADMIT STRIP PRINTED AND DOCUMENTED, ADMISSION COMPLETED. WILL ACKNOWLEDGE AND IMPLEMENT ORDERS. CONTINUING TO MONITOR.
--- NOTE | 2019-04-06 12:39 | 2DMMODE ---
[facility] [address] [address] 2 D/M-MODE ECHOCARDIOGRAM Name: PATRICIA CARPIO Room #: 201-P ADM IN M.R.#: [id number] ������������� Admission: 04/06/19 ������������� Attend Phys: Brian Rebolledo Discharge: ��� ������������� ��� Date of : 63 Date of Service: 04/06/19 1239 �� Report #: [id number] �������� ��������������������������������������������[id number] THIS REPORT FOR: //name// APPROVED REPORT Study performed: 04/06/2019 11:08:45 EXAM: Comprehensive 2D, Doppler, and color-flow Echocardiogram Patient Location: ER Room #: 4 Status: routine BSA: 2.07 HR: 85 bpm BP: 185/119 mmHg Rhythm: NSR Other Information Study Quality: Good Indications ICD: Congestive Heart Failure COPD Dyspnea Elevated Troponin Cardiomyopathy Hypertension/HDD 2D Dimensions RVDd: 43.20 mm IVSd: 12.71 (7-11mm) LVOT Diam: 22.66 (18-24mm) LVDd: 62.89 mm PWd: 12.70 (7-11mm) Ascending Ao: 31.17 (22-36mm) LVDs: 56.59 (25-40mm) Aortic Root: 35.52 mm IVC: 27.00 mm Volumes Left Atrial Volume (Systole) Single Plane 4CH: 102.91 mL Single Plane 2CH: 113.42 mL LA ESV Index: 56.00 mL/m2 Aortic Valve AoV Peak Micheal.: 1.02 m/s AO Peak Gr.: 4.20 mmHg LVOT Max P.75 mmHg LVOT Max V: 0.66 m/s [facility] [address] [place] [address] 2 D/M-MODE ECHOCARDIOGRAM Name: PATRICIA CARPIO Room #: 201-P [facility] IN ..#: [id number] ������������� Admission: 04/06/19 ������������� Attend Phys: Brian Rebolledo Discharge: ��� ������������� ��� Date of : 63 Date of Service: 04/06/19 1239 �� Report #: [id number] �������� ��������������������������������������������[id number] LIGIA Vmax: 2.60 cm2 Mitral Valve E/A Ratio: 1.7 MV Decel. Time: 114.85 ms MV E Max Micheal.: 0.86 m/s MV A Micheal.: 0.52 m/s MV PHT: 33.31 ms IVRT: 96.89 ms Pulmonary Valve PV Peak Micheal.: 0.91 m/s PV Peak Gr.: 3.31 mmHg Pulmonary Vein P Vein S: 0.17 m/s P Vein A: 0.17 m/s P Vein D: 0.27 m/s P Vein A Dur.: 60.0 msec P Vein S/D Ratio: 0.63 Tricuspid Valve TR Peak Micheal.: 3.71 m/s TR Peak Gr.: 55.01 mmHg PA Pressure: 70.00 mmHg Left Ventricle Left ventricle is dilated. There is severe global hypokinesis of the left ventricle. Mild concentric left ventricular hypertrophy. Left ventricular ejection fraction is severely decreased. LVEF is 15-20%. Moderate diastolic dysfunction is present (pseudonormal filling). Right Ventricle Right ventricle is dilated. The right ventricular systolic function is normal. Atria Left atrium is dilated. Right atrium is dilated. Aortic Valve The aortic valve is mildly calcified. Trace aortic regurgitation. There is no aortic valvular stenosis. Mitral Valve The mitral valve is normal in structure. Moderate mitral regurgitation. No evidence of mitral valve stenosis. Tricuspid Valve [facility] [place] [address] 2 D/M-MODE ECHOCARDIOGRAM Name: PATRICIA CARPIO Room #: 201-P ADM IN M.R.#: [id number] ������������� Admission: 04/06/19 ������������� Attend Phys: Brian Rebolledo Discharge: ��� ������������� ��� Date of : 63 Date of Service: 04/06/19 1239 �� Report #: [id number] �������� ��������������������������������������������[id number] The tricuspid valve is normal in structure. There is moderate tricuspid regurgitation. Estimated PAP70 mmHg. There is severe pulmonary hypertension. Pulmonic Valve The pulmonary valve is normal in structure. Trace pulmonic regurgitation. Great Vessels The aortic root is normal in size. The inferior vena cava is dilated with no inspiratory collapse. Pericardium There is no pericardial effusion. <Conclusion> Left ventricular ejection fraction is severely decreased. There is severe global hypokinesis of the left ventricle. LVEF is 15-20%. Both atria are dilated. The aortic valve is mildly calcified. Trace aortic regurgitation, no stenosis. The mitral valve is normal in structure. Moderate mitral regurgitation. There is moderate tricuspid regurgitation. Estimated pulmonary artery pressure of 70 mmHg. There is no pericardial effusion. ��������������������������������������������� <ELECTRONICALLY SIGNED> ���������������������������������������� By: Benny Heller MD, FACC ��������������������������������������������� 04/06/19 1239 1239 1239 Benny Heller MD, FACC /INF
--- NOTE | 2019-04-06 13:40 | EKG ---
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1965 Requested By: Juventino Haywood Order Number: [id number] MD: Dheeraj Dimas Measurements Intervals [place] Rate: 91 P: 65 [place]: 191 QRS: -56 QRSD: 97 T: 104 QT: 386 QTc: 475 Interpretive Statements Sinus rhythm Left atrial enlargement Left anterior fascicular block Abnormal T, consider ischemia, lateral leads Compared to ECG 03/17/2019 14:38:32 Electronically Signed On 04-06-2019 13:40:24 CDT by Dheeraj Dimas [email or web address] ��������������������������������������������� <ELECTRONICALLY SIGNED> ���������������������������������������� By: Dheeraj Dimas MD ��������������������������������������������� 04/06/19 1340 12 12 Dheeraj Dimas MD /MEE
[2019-04-06 16:24] VITALS: BP 140/93
--- NOTE | 2019-04-06 17:28 | NUR ---
Pt here observation for dialysis tx. He lives in the [facility] II at [facility]. Cab Voucher provided for transport back there this evening. Pt is indep with a cane. DC summary and instructions need to be sent with the pt.
--- NOTE | 2019-04-06 18:22 | NUR ---
PT CONTINUES TO BE IN AGITATED MOOD. DIALYSIS NURSE CURRENTLY IN ROOM AND PT RECEIVING DIALYSIS. PER ORDERS PT TO BE DC'D BACK TO FACILITY TONIGHT AFTER DIALYSIS COMPLETION. PT DENIES NEEDS AT THIS TIME. HOURLY ROUNDING PERFORMED. CONTINUING TO MONITOR.
--- NOTE | 2019-04-06 21:44 | NUR ---
PT DISCHARGED TO [facility] VIA CAB.DIALYSIS WAS COMPLETED W/O COMPLICATION.PT AMBULATED TO ED W/ A CANE.NO CONCERNS VOICED.
== END 2019-04-06 20:07 | DRG 291 ==
LOC: ER 19:16 → EROBS 04-06 00:55 → 2N 04-06 11:20
PROVIDERS: Emergency Medicine; ADMIT Hospitalist
PROC: 5A1D70Z Performance of Urinary Filtration, Intermittent, Less than 6 Hours Per Day (ICD-10-PCS; principal; 2019-04-06)
DX: I13.2 Hypertensive heart and chronic kidney disease with heart failure and with stage 5 chronic kidney disease, or end stage renal disease (principal); I50.43 Acute on chronic combined systolic (congestive) and diastolic (congestive) heart failure; N18.6 End stage renal disease; F11.20 Opioid dependence, uncomplicated; G89.29 Other chronic pain; I42.9 Cardiomyopathy, unspecified; J44.9 Chronic obstructive pulmonary disease, unspecified; M54.9 Dorsalgia, unspecified; E87.5 Hyperkalemia; R10.9 Unspecified abdominal pain; Z91.14 Patient's other noncompliance with medication regimen; Z88.1 Allergy status to other antibiotic agents; Z88.8 Allergy status to other drugs, medicaments and biological substances; Z87.891 Personal history of nicotine dependence; Z82.49 Family history of ischemic heart disease and other diseases of the circulatory system; Z95.828 Presence of other vascular implants and grafts; Z79.899 Other long term (current) drug therapy
CPT/HCPCS: 10081; 32100

== ENCOUNTER 2019-04-12 21:55 | Inpatient (IN) | payer OTHER ==
[~2019-04-12] VITALS: Ht 182.9 cm; Wt 75.7 kg
[2019-04-12 21:56] VITALS: BP 167/122
[2019-04-12 22:34] LABS: HEMATOCRIT 29.4 % (42.0-52.0); HEMOGLOBIN 9.6 gm/dL (14.0-18.0); MCH 31.1 pg (26.0-34.0); MCHC 32.7 g/dL (28.0-37.0); PLATELET COUNT 123 thou/uL (150-400); RBC 3.09 mil/uL (4.50-6.00); RDW 22.4 % (10.5-14.5); WBC 5.6 thou/uL (4.0-11.0)
[2019-04-12 22:42] LABS: CALCIUM 8.2 mg/dL (8.5-10.1); CREATININE 5.1 mg/dL (0.7-1.3); POTASSIUM 4.3 mmol/L (3.5-5.1)
[2019-04-12 22:48] LABS: ALBUMIN 3.2 g/dL (3.4-5.0); TOTAL BILIRUBIN 0.4 mg/dL (<0.1-1.0); TOTAL PROTEIN 6.8 g/dL (6.4-8.2)
[2019-04-12 23:03] LABS: ABSOLUTE NEUTROPHILS 3.6 thou/uL (1.4-8.2)
[2019-04-12 23:05] LABS: ANISOCYTOSIS 3+; PLATELET ESTIMATE DECREASED; POIKILOCYTOSIS 1+; POLYCHROMASIA 1+
--- NOTE | 2019-04-12 23:48 | NUR ---
PATIENT BEGAN YELLING "HELP" FROM HIS ROOM. NURSE HAD BEEN NOTIFIED THAT O2 SAT WAS DROPPING. PATIENT SAT 82% WHEN YELLING "HELP". JULIO CÉSAR JOSÉ AND DR. MOJICA TO BEDSIDE. NRB APPLIED. RT NOTIFIED RE: BREATHING TREATMENT AND BIPAP. HOWEVER, RT STATES THAT PATIENT WILL NOT WEAR BIPAP. RT NOTIFIED THAT PHYSICIAN AT BEDSIDE STATES TO PLACE PATIENT ON BIPAP.
[2019-04-13 01:41] VITALS: BP 177/132
--- NOTE | 2019-04-13 01:50 | NUR ---
ATTEMTPTED TO CALL NEPHROLOGY PHYSICIAN CONSULT. PLACED CONSULT ROUTINE, THE ANSWERING SERVICE WAS GOING TO PAGE OUT AT THIS TIME. NURSE NOTIFIED THAT FLOOR WILL NEED TO CALL IN PHYSICIAN CONSULT IN AM.
[2019-04-13 02:06] VITALS: BP 189/130
--- NOTE | 2019-04-13 05:13 | NUR ---
ASSUME CARE 0200. BP VERY HIGH. HOMEMEDS RESUMED WITH BP MEDS STARTING THS AM. BREATHING IS VERY LABORED AND SHALLOW. PT SOUNDS WET. PT DENIES FOR HIS BED ALARM TO BE ON. HE DENIES THE YELLOW SOCKS AND DENIES TO SIGN THE FALLS CONTRACT. HE STATES HE IS NOT A FALL RISK. HAS HIS CANE IN WITH HIM. EDUCATED ON THE NEED TO CALL FOR ASSISTANCE AND NOT FALL. ASSESSMENT CHARTED. PROGRESSING WELL WITH POC. PLAN IS TO MONITOR RESPIRATORY FUNCTION AND BP. WILL CONTINUE TO FOLLOW [facility] POC
[2019-04-13 05:24] VITALS: BP 155/119
[2019-04-13 05:25] LABS: CALCIUM 8.3 mg/dL (8.5-10.1); CREATININE 5.4 mg/dL (0.7-1.3); POTASSIUM 4.9 mmol/L (3.5-5.1)
[2019-04-13 08:38] VITALS: BP 146/101
--- NOTE | 2019-04-13 09:54 | NUR ---
PT WILL ONLY TAKE COREG AND PO PAIN MEDICATION BEFORE DIALYSIS. HE STATES THAT HE WILL NOT TAKE ANY OTHER MEDICATION UNTIL DIALYSIS IS COMEPLETE. PAGE STEAM FINISHER TO FIND OUT WHEN HE WILL BE SCHEDULED FOR DALYSIS TODAY. PT ALSO REFUSES TO ALLOW TELE LEADS TO BE FIXED WHILE HE IS EATING.
--- NOTE | 2019-04-13 11:12 | NUR ---
PT PPLACED ON BIPA BY RT AT THIS TIME FOR C/O SOB. TALKE TO SPECIAL EQUIPMENT TECHNICIAN AND WILL BE START AROUND 1300 TODAY.
--- NOTE | 2019-04-13 12:44 | NUR ---
Received notice pt not happy with renal diet order. Newly admitted. Hx ESRD and on dialysis. At time of visit, pt had bipap mask on. Speaking some and stated if he cannot have just heart healthy diet and not renal then he is not going to eat. Tried obtaining food preferences but pt difficulty talking with mask on and SOA, did not want to speak. Explained will notify nurse of diet concerns but need to obtain clarification from renal to liberalize diet.
--- NOTE | 2019-04-13 12:48 | NUR ---
Pt unhappy that he is receiving a renal diet, just wants a heart healthy diet. Please obtain approval from renal physician before liberalizing.
--- NOTE | 2019-04-13 14:34 | NUR ---
PT HAVING DIALYSIS AT [facility] AT THIS TIME.
--- NOTE | 2019-04-13 16:02 | NUR ---
Pt known to cm from previous admissions. [facility]. He is on o2 and gets dialysis mwf at [facility]. He has a complex medical history and a history of non compliance. The pt is leaving [facility] this afternoon and has his car in the parking lot. center updated.
--- NOTE | 2019-04-13 16:09 | EKG ---
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 : 1965 Requested By: Servando Ariza Order Number: [id number] MD: Benny Heller Measurements Intervals [place] Rate: 111 P: 48 [place]: 172 QRS: -50 QRSD: 92 T: 131 QT: 351 QTc: 477 Interpretive Statements Sinus tachycardia RSR' in V1 or V2, right VCD Inferior infarct, old LVH with repolarization abnormality Compared to ECG 04/05/2019 23:13:02 No significant change was found Electronically Signed On 04-13-2019 16:09:12 CDT by Benny Heller [email or web address] ��������������������������������������������� <ELECTRONICALLY SIGNED> ���������������������������������������� By: Benny Heller MD, [facility] ��������������������������������������������� 04/13/19 1609 06 Benny Heller MD, [facility] /EPI
--- NOTE | 2019-04-13 17:49 | NUR ---
PT TO BE DISCHARGED AFTER DIALYSIS. GAVE PAIN MEDS THIS SIFT HOWEVER PT REFUSING MOST OF HIS MEDICATION.
[2019-04-13 19:25] VITALS: BP 146/101
--- NOTE | 2019-04-16 11:27 | HC ---
[facility] [place] [address] CONSULTATION Name: PATRICIA CARPIO Room #: 210-P [facility] IN M.R.#: [id number] Admission: 04/12/19 ������������������ Attend Phys: Brian Woody Discharge: 04/13/19 ������������������ Date of : 63 Report #: [id number] THIS REPORT FOR: //name// CC: [facility] DATE OF SERVICE: 04/13/2019 NEPHROLOGY CONSULTATION: REASON FOR CONSULTATION: End-stage renal disease in need of dialysis. HISTORY OF PRESENT ILLNESS: A 53-year-old gentleman well known to our service from frequent admissions at this hospital. He is a chronic dialysis patient, dialyzing at [facility]. The patient has had difficulty with severe hypertension, intermittent heart failure complicating a severe cardiomyopathy with low ejection fraction. He had dialysis 2 days ago. He had inadequate fluid removal due to severe cramping, became short winded and came to the Emergency Room here and was found to have congestive heart failure. PAST MEDICAL HISTORY: He has longstanding HIV on retrovirals, severe cardiomyopathy with decreased ejection fraction, severe COPD, former cigarette smoking, difficult hypertension, previous abdominal trauma with spleen laceration and HIV as mentioned. FAMILY HISTORY: Positive for heart disease, but not renal disease. SOCIAL HISTORY: He has been a heavy smoker, apparently quit recently. No recent alcohol or drug use. REVIEW OF SYSTEMS: GENERAL: He has been feeling reasonably well. EYES: Vision is okay. ENT: Hearing okay, swallows okay. No mouth sores or ulcers. ENDOCRINE: No diabetes. RESPIRATORY: Gets easily short-winded, no pleuritic pain, or hemoptysis. CARDIAC: No chest pain or palpitations. GASTROINTESTINAL: Appetite is okay. Denies nausea, vomiting or diarrhea or bloody stools. GENITOURINARY: Continues to make a reasonable amount of urine. NEUROLOGIC: No syncope, seizure, stroke or history of neuropathy. PHYSICAL EXAMINATION: GENERAL: Reasonably well-appearing slightly dyspneic gentleman. [facility] [address] [place] [address] CONSULTATION Name: PATRICIA CARPIO Room #: 210[facility] IN M.R.#: [id number] Admission: 04/12/19 ������������������ Attend Phys: Brian Woody Discharge: 04/13/19 ������������������ Date of : 63 Report #: [id number] SKIN: Unremarkable. SKELETAL: Well developed, well nourished. HEENT: Extraocular movements are full. No scleral icterus. Hearing and vision intact. Mucous membranes moist. NECK: Supple, no carotid bruits. CHEST: Shows scanty crackles at the bases. HEART: Regular. ABDOMEN: Soft and nontender. He has a left chest dialysis catheter in place. EXTREMITIES: Show no peripheral edema. NEUROLOGIC: Grossly intact. LABORATORY DATA: Hemoglobin 9.6. Sodium 139, potassium 4.9, chloride 101, bicarbonate 24. ASSESSMENT: 1. End-stage renal disease. He needs dialysis. We will dialyze with ultrafiltration of 3 liters. 2. Difficult hypertension. I will add amlodipine to his hydralazine, Imdur, and carvedilol. 3. Severe nonischemic cardiomyopathy. 4. Human immunodeficiency virus, on antiretrovirals. 5. Chronic obstructive pulmonary disease. ��������������������������������������������� <ELECTRONICALLY SIGNED> ���������������������������������������� By: Aly Conte MD ��������������������������������������������� 04/16/19 1127 0822 2305 Aly Conte MD /nt
== END 2019-04-13 19:40 | disposition home or self-care (01) | DRG 291 ==
LOC: ER 21:55 → 2N 23:46 → EROBS 23:46 → 2N 04-13 01:57
PROVIDERS: Emergency Medicine; Nurse Practitioner Family; ADMIT Hospitalist
PROC: 5A1D70Z Performance of Urinary Filtration, Intermittent, Less than 6 Hours Per Day (ICD-10-PCS; principal; 2019-04-13)
DX: I13.2 Hypertensive heart and chronic kidney disease with heart failure and with stage 5 chronic kidney disease, or end stage renal disease (principal); I50.33 Acute on chronic diastolic (congestive) heart failure; J96.21 Acute and chronic respiratory failure with hypoxia; N18.6 End stage renal disease; I42.9 Cardiomyopathy, unspecified; J43.9 Emphysema, unspecified; M54.9 Dorsalgia, unspecified; G89.4 Chronic pain syndrome; Z88.1 Allergy status to other antibiotic agents; Z91.14 Patient's other noncompliance with medication regimen; Z88.8 Allergy status to other drugs, medicaments and biological substances; Z87.891 Personal history of nicotine dependence; Z82.49 Family history of ischemic heart disease and other diseases of the circulatory system; Z95.810 Presence of automatic (implantable) cardiac defibrillator; Z79.82 Long term (current) use of aspirin; Z79.899 Other long term (current) drug therapy
CPT/HCPCS: 32100

== ENCOUNTER 2019-04-26 11:52 | Inpatient (IN) | payer OTHER ==
[~2019-04-26] VITALS: Ht 182.9 cm; Wt 33.6 kg
--- NOTE | ~2019-04-26 | HC ---
[facility] [place] [address] CONSULTATION Name: PATRICIA CARPIO Room #: 213-P ADM IN M.R.#: [id number] Admission: 04/26/19 ������������������ Attend Phys: Erika Ramos MD Discharge: ������������������ Date of : 63 Report #: [id number] THIS REPORT FOR: //name// CC: Erika Ramos [facility] DATE OF SERVICE: 04/27/2019 REASON FOR CONSULTATION: End-stage renal disease, in need of dialysis. HISTORY OF PRESENT ILLNESS: A 53-year-old patient is well known to our Service. Frequent admissions at this hospital. He is a chronic dialysis patient at [facility]. The patient was admitted with nausea, vomiting, abdominal pain. He has received IV and oral narcotics. He is a little bit stunned and only semi-lucid at the current time. He is in need of dialysis. PAST MEDICAL HISTORY: He has had severe hypertension, heart failure with severe cardiomyopathy, low ejection fraction, difficulty with dialysis and ultrafiltration. He has longstanding HIV, on retrovirals as well as severe COPD, heavy cigarette smoker, previous abdominal trauma with spleen laceration and surgery. FAMILY HISTORY: Positive for heart disease, not renal disease. SOCIAL HISTORY: Heavy smoker and he has lots of IV and p.o. narcotic usage. REVIEW OF SYSTEMS: GENERAL: He says he has not been well. EYES: His vision is okay. ENT: Hearing okay. Swallowing is okay. ENDOCRINE: No diabetes. RESPIRATORY: Easily short-winded, no pleuritic pain, or hemoptysis. CARDIAC: No chest pain or palpitations. GASTROINTESTINAL: Appetite is okay. Denies nausea, vomiting, diarrhea. GENITOURINARY: Continues to make urine. NEUROLOGIC: No seizure, syncope or stroke. PHYSICAL EXAMINATION: GENERAL: This is a reasonably comfortable appearing. SKIN: Unremarkable. SKELETAL: Well developed, well nourished. Left chest dialysis catheter in place. HEENT: Extraocular movements are full. No scleral icterus. Hearing and vision intact. Mucous membranes moist. [facility] [address] [place] [address] CONSULTATION Name: PATRICIA CARIPO Room #: 213-P ADM IN M.R.#: [id number] Admission: 04/26/19 ������������������ Attend Phys: Erika Ramos MD Discharge: ������������������ Date of : 63 Report #: [id number] NECK: Supple without carotid bruits or lymphadenopathy. CHEST: Clear to auscultation. HEART: Regular. ABDOMEN: Soft and nontender. EXTREMITIES: Show trace peripheral edema. LABORATORY DATA: Hemoglobin 10.8. Sodium 136, potassium 4.4, chloride 97, bicarbonate 29, creatinine 5. Transaminases are okay. Bilirubin is okay. ASSESSMENT AND PLAN: 1. End-stage renal disease in need of dialysis. He will dialyze today. 2. Nausea, vomiting, abdominal pain, likely due to his heavy narcotic usage. 3. Human immunodeficiency virus, on antiretrovirals. 4. Severe cardiomyopathy. 5. Difficult hypertension. ��������������������������������������������� ���������������������������������������� By: ��������������������������������������������� 1147 1244 Aly Conte MD /nt
[~2019-04-26 11:52] MED LIST changes: +ALDARA1 EACH TOP; +COMPAZINE10 MG PO; +G TUSSIN AC LI473 ML PO; +LAMIVUDINE100 MG PO; +ONDANSETRON HCL4 M3 PO; +PROMETHAZINE-D118 ML PO; +SENSIPAR 30 MG30 M1 PO; +VITAMIN D2000 UNIT PO; +[UNRECOGNIZED DRUG - OTHER] RECTAL
[2019-04-26 11:56] VITALS: BP 141/111
[2019-04-26] MEDS ORDERED: IPRAT-ALBUT 0.5-3 ML INH (11:56)
[2019-04-26] MEDS ORDERED: PREZISTA800 MG PO (11:58)
[2019-04-26 12:27] LABS: HEMATOCRIT 33.5 % (42.0-52.0); HEMOGLOBIN 10.8 gm/dL (14.0-18.0); MCH 30.9 pg (26.0-34.0); MCHC 32.3 g/dL (28.0-37.0); MCV 95.6 fL (80.0-100.0); PLATELET COUNT 123 thou/uL (150-400); RDW 20.9 % (10.5-14.5); WBC 3.7 thou/uL (4.0-11.0)
[2019-04-26 12:39] LABS: CALCIUM 8.8 mg/dL (8.5-10.1); POTASSIUM 4.4 mmol/L (3.5-5.1)
[2019-04-26 12:44] LABS: ALBUMIN 3.8 g/dL (3.4-5.0); TOTAL BILIRUBIN 0.7 mg/dL (<0.1-1.0); TOTAL PROTEIN 8.4 g/dL (6.4-8.2)
[2019-04-26 12:54] LABS: ABSOLUTE NEUTROPHILS 2.2 thou/uL (1.4-8.2); ANISOCYTOSIS 2+; NUCLEATED RBCS 2 /100WBC; PLATELET ESTIMATE NORMAL
[2019-04-26] MEDS ORDERED: OTHER PHARMACY (13:59)
[2019-04-26] MEDS ORDERED: ONDANSETRON HCL4 M2 PO (16:07)
[2019-04-26 18:28] VITALS: BP 141/108
[2019-04-26 18:35] VITALS: BP 141/115
--- NOTE | 2019-04-26 19:19 | NUR ---
PT ARRIVED FROM ED APPROX 1850. PT IMMEDIATELY BEGAN TO THREATEN ME. HE TRANSFERRED HIMSELF TO BED AND REPORTED HE WAS "OK." APPEARED CLINICALLY STABLE. REPORT GIVEN TO NOC NURSE RIGHT AWAY.
[2019-04-26 19:39] VITALS: BP 153/120
--- NOTE | 2019-04-27 03:33 | NUR ---
PT ARRIVED UNIT AT ABOUT 1900. PT A/OX4. IRRITABLE, VITAL SIGNS STABLE, ASSESSMENT CHARTED. PT REFUSED BED ALARM, AND REFUSED TO SIGN FALL EDUCATION. PT WAS ENCOURGAED TO CALL BEFORE GETTING OUT OF BED. HE STATED THAT HE CAN HANDLE HIMSELF AND DID NOT WANT ANY HELP GETTING IN AND OUT OF BED. EDUCATION PROVIDED. ABDOMINAL AND BACK PAIN ADEQAUTELY MANAGED WITH PAIN MEDICATION. NAUSEA MANAGED WITH MEDICATION. PT RESTED WELL THROUGH THE NIGHT. ON 3L O2. PROGRESSING TOWARD PLAN OF CARE, WILL CONTINUE TO MONITOR.
[2019-04-27 05:00] VITALS: BP 147/115
[2019-04-27 08:00] VITALS: BP 167/149
--- NOTE | 2019-04-27 08:31 | EKG ---
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 : 1965 Requested By: Tammy Engel Order Number: [id number] MD: Benny Heller Measurements Intervals [place] Rate: 89 P: 49 [place]: 215 QRS: -47 QRSD: 97 T: 116 QT: 416 QTc: 507 Interpretive Statements Sinus rhythm Prolonged [place] interval RSR' in V1 or V2, probably normal variant Left ventricular hypertrophy Inferior infarct, old T-wave abnormality, consider lateral ischemia versus strain Prolonged QT interval Compared to ECG 04/12/2019 22:07:00 no significant change was found Electronically Signed On 04-27-2019 8:31:48 CDT by Benny Heller [email or web address] ��������������������������������������������� <ELECTRONICALLY SIGNED> ���������������������������������������� By: Benny Heller MD, [facility] ��������������������������������������������� 04/27/19 0831 1202 120 Benny Heller MD, [facility] /EPI
[2019-04-27 09:00] VITALS: BP 152/127
--- NOTE | 2019-04-27 14:29 | NUR ---
ASSUMED CARE AT 0700, SHIFT ASSESSMENT DONE, MEDS GIVEN, BP ELEVATED. DR PETERS AWARE. DIALYSIS ORDERED, IS GETTING DIALYZED THIS AFTERNOON. REPORTED PAIN, PRN PAIN MEDS GIVEN. REFUSED TO BE ON FALL RISK PRECAUTIONS, WANTS TO BE UP AD ILYA. HAD A EPISODE OF VOMITING THIS AM, PRN NAUSEA MEDICATION GIVEN. WILL CONTINUE TO ASSESS AND ASSIST WITH ADLs NEEDED.
--- NOTE | 2019-04-27 14:51 | NUR ---
Pt resides at the [facility]. He is indep with gait and adl's. 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 A cab voucher has been left with nursing if he needs a ride back to his apt tomorrow. No other needs noted.
--- NOTE | 2019-04-27 18:19 | NUR ---
PATIENT WAS OFFERED SCHEDULED MEDICATION ZOFRAN AND CARVEDILOL, HOWEVER PT WANTED TO LEAVE THE MEDS AT THE BEDSIDE. HE WAS EXPLAINED THAT PER THE HOSPITAL POLICY, NURSES ARE NOT SUPPOED TO LEAVE MEDS AT THE BEDSIDE. HE THEN REFUSED TO TAKE MEDS AND MEDS WERE DESTROYED IN THE MED WASTE BIN.
[2019-04-27 22:57] VITALS: BP 154/111
--- NOTE | 2019-04-28 04:07 | NUR ---
ASSUMED PT ARE AT 190. PT ORIGINALLY ASLEEP. WHEN AWAKE PT A/OX4, IRRITABLE AND REFUSED 2000 VITALS. EDUCATION PROVIDED. VITAL SIHNS STABLE ONCE TAKEN, ASSESSMENT CHARTED. PAIN ADEQAUTELY MANAGED WITH PAIN MEDICATION. PT RESTED WELL THROUGH THE NIGHT. PROGRESSING TOWARD PLAN OF CARE, WILL CONTINUE TO MONITOR.
[2019-04-28 04:43] VITALS: BP 128/92
[2019-04-28 09:18] VITALS: BP 132/99
[2019-04-28 09:39] VITALS: BP 132/99
--- NOTE | 2019-04-28 10:00 | NUR ---
Assumed care of pt at 0700. Pt alert and oriented x4. Irritable and agitated. Refused morning meds stating he will take them when he gets home. On 3L O2. Refused cab voucher because he had own ride. Discharged.
== END 2019-04-28 10:02 | disposition home or self-care (01) | DRG 391 ==
LOC: ER 11:52 → EROBS 17:50 → 2N 17:50
PROVIDERS: Physician Assistant; ADMIT Internal Medicine
PROC: 5A1D70Z Performance of Urinary Filtration, Intermittent, Less than 6 Hours Per Day (ICD-10-PCS; principal; 2019-04-27)
DX: A08.4 Viral intestinal infection, unspecified (principal); J96.21 Acute and chronic respiratory failure with hypoxia; N18.6 End stage renal disease; I42.9 Cardiomyopathy, unspecified; K86.1 Other chronic pancreatitis; I13.2 Hypertensive heart and chronic kidney disease with heart failure and with stage 5 chronic kidney disease, or end stage renal disease; I50.32 Chronic diastolic (congestive) heart failure; J43.9 Emphysema, unspecified; G89.29 Other chronic pain; M19.90 Unspecified osteoarthritis, unspecified site; Z21 Asymptomatic human immunodeficiency virus [HIV] infection status; K52.9 Noninfective gastroenteritis and colitis, unspecified; Z88.8 Allergy status to other drugs, medicaments and biological substances; Z79.1 Long term (current) use of non-steroidal anti-inflammatories (NSAID); Z79.82 Long term (current) use of aspirin; Z79.51 Long term (current) use of inhaled steroids; Z88.1 Allergy status to other antibiotic agents; Z87.891 Personal history of nicotine dependence; Z95.810 Presence of automatic (implantable) cardiac defibrillator
CPT/HCPCS: 10081; 32100

== ENCOUNTER 2019-08-16 04:30 | Emergency (ER) | payer OTHER ==
[~2019-08-16] VITALS: Ht 182.9 cm; Wt 65.3 kg
[~2019-08-16 04:30] MED LIST changes: +IPRAT-ALBUT 0.5-3 ML INH; +OTHER PHARMACY
--- NOTE | 2019-08-21 14:17 | NUR ---
Call rec'd from Sister Lamar Chavis at the D[facility]. She was calling to verify pt had as he had missed his dialysis treatment and she had called family to check on him. The pt's sister reported that he had in the ER. Dc summary requested and faxed for their records.
== END 2019-08-16 04:36 ==
LOC: ER 04:30
DX: I46.9 Cardiac arrest, cause unspecified (principal); I12.0 Hypertensive chronic kidney disease with stage 5 chronic kidney disease or end stage renal disease; N18.6 End stage renal disease; I50.32 Chronic diastolic (congestive) heart failure; M19.90 Unspecified osteoarthritis, unspecified site; J44.9 Chronic obstructive pulmonary disease, unspecified; Z86.2 Personal history of diseases of the blood and blood-forming organs and certain disorders involving the immune mechanism; Z21 Asymptomatic human immunodeficiency virus [HIV] infection status; Z88.1 Allergy status to other antibiotic agents; Z88.8 Allergy status to other drugs, medicaments and biological substances; Z87.891 Personal history of nicotine dependence; Z99.2 Dependence on renal dialysis